=== PATIENT | female | born 1995 | race Two or more races ===

== ENCOUNTER 2023-03-10 15:45 | Emergency (ER) | payer MEDICAID, OTHER ==
[~2023-03-10] VITALS: Ht 170.2 cm; Wt 67.0 kg
[2023-03-10] MEDS ORDERED: ALBUTEROL SULF 2.5 MG/0.5ML(0.5%) NEB SOLN NEB ONE (17:30)
[2023-03-10] MEDS ORDERED: IPRATROPIUM BROM 0.5 MG/2.5ML INH SOL NEB ONE (17:30)
[2023-03-10 20:30] VITALS: BP 131/85; PULSE 72; RESP 18; TEMP 98.3; O2SAT 95
[2023-03-10] MEDS ORDERED: PROM1SOL4 PO (21:54)
[2023-03-10] MEDS ORDERED: ALBU108A5 IN (21:54)
[2023-03-10] MEDS ORDERED: PRED20TA2 PO (21:54)
[2023-03-10] MEDS ORDERED: AZITTAB PO (21:56)
== END 2023-03-10 22:23 | disposition home or self-care (01) ==
LOC: ER 15:45
DX: J40 Bronchitis, not specified as acute or chronic (principal)
CPT/HCPCS: 71045; 94640; 99283; J7644

== ENCOUNTER 2023-08-07 16:07 | Emergency (ER) | payer MEDICAID ==
[~2023-08-07] VITALS: Ht 167.6 cm; Wt 69.1 kg
[~2023-08-07 16:07] MED LIST: ALBU108A5 IN; AZITTAB PO; PRED20TA2 PO; PROM1SOL4 PO
[2023-08-07 17:53] LABS: Urine Bacteria None Seen /hpf (None Seen); Urine WBC None Seen /hpf (0 - 5)
[2023-08-07 18:02] LABS: Urine Blood Negative /uL (Negative); Urine Clarity Clear (Clear); Urine Color Colorless (Yellow); Urine Protein, UAD Negative (Negative); Urine Specific Gravity 1.006 (1.001-1.035); Urine Urobilinogen Normal (Negative)
[2023-08-07 18:18] LABS: Basophils # (auto) 0.1 10 ^3/uL (0-0.2); Basophils % (auto) 0.8 % (0.0-2.0); Eosinophils # (auto) 0.4 10 ^3/uL (0-0.8); Eosinophils % (auto) 4.7 % (0.0-7.0); Hematocrit 42.9 % (36.0-46.0); Hemoglobin 14.1 g/dL (12.2-16.2); Lymphocytes # (auto) 2.2 10 ^3/uL (0.4-5.4); Mean Corpuscular Hemoglobin 29.5 pg (28.0-32.0); Mean Corpuscular Volume 89.6 fL (80.0-100.0); Monocytes # (auto) 0.6 10 ^3/uL (0-1.3); Neutrophils # (auto) 4.6 10 ^3/uL (1.6-8.6); Neutrophils % (auto) 58.5 % (37.0-80.0); Nucleated Red Blood Cells % 0.1 %; Red Blood Cells 4.79 10^6/uL (4.0-5.20); Red Cell Distribution Width 13.5 % (11.8-14.3); White Blood Cell 7.8 10^3/uL (4.4-10.8)
[2023-08-07 18:20] LABS: Chloride 109 mmol/L (98-107); Sodium 139 mmol/L (136-145)
[2023-08-07 18:21] LABS: Anion Gap 4 (5-15); Calcium 9.6 mg/dL (8.7-10.4); Carbon Dioxide 26 mmol/L (20-30)
[2023-08-07 18:26] LABS: BUN/Creatinine Ratio 9.6 (10.0-20.0); Blood Urea Nitrogen 7 mg/dL (9-23); Glucose 88 mg/dL (74-106)
[2023-08-07 19:47] VITALS: BP 112/66; PULSE 65; RESP 18; TEMP 98.7; O2SAT 100
== END 2023-08-07 20:54 | disposition home or self-care (01) ==
LOC: ER 16:07
DX: K59.00 Constipation, unspecified (principal); R10.2 Pelvic and perineal pain; Z32.02 Encounter for pregnancy test, result negative
CPT/HCPCS: 36415; 74176; 76830; 76856; 80048; 81001; 81025; 84702; 85025

== ENCOUNTER 2024-01-29 04:06 | Emergency (ER) | payer MEDICAID ==
[~2024-01-29] VITALS: Ht 170.2 cm; Wt 68.0 kg
[2024-01-29] MEDS: ALBUTEROL SULF 2.5 MG/0.5ML(0.5%) NEB SOLN ONE (04:21)
[2024-01-29] MEDS: IPRATROPIUM BROM 0.5 MG/2.5ML INH SOL ONE (04:21)
[2024-01-29] MEDS: IPRATROPIUM BROM 0.5 MG/2.5ML INH SOL NEB ONE (04:26)
[2024-01-29] MEDS: ALBUTEROL SULF 2.5 MG/0.5ML(0.5%) NEB SOLN NEB ONE (04:27)
[2024-01-29] MEDS ORDERED: METH4PAK PO (04:58)
[2024-01-29] MEDS ORDERED: AUG875T PO (04:59)
--- NOTE | 2024-01-29 05:01 | ED.PDOC ---
SOB-HPI HPI Comments A 29 year old female presents to the ED with a chief complaint of asthma exacerbation. Patient states she has a past medical history of asthma and began experiencing a cough 2 days ago. Patient has been using her inhaler for the past 2 days but has not noticed an improvement. Upon triage patient's O2 sat was 89% on RA. No other symptoms or modifying factors present at this time. Chief Complaint: Asthma Time Seen by MD: 04:54 Primary Care Provider: NONE Reviewed notes: Medications, Allergies Information Source: Patient Mode of Arrival: Ambulatory Severity: Moderate Timing: Days Duration: Since onset History of: Asthma Prehospital treatment: None Associated Signs and Symptoms: Cough Past Medical History PAST MEDICAL HISTORY: Asthma Surgical History: Denies all surgeries PROGRAM DIR History: Other Family History Family History: Reviewed,noncontributory to illness, No family hx of Cancer, No family hx of DM, No family hx of Heart jennifer, No family hx of HTN, No family hx ofKidney jennifer, No family hx of Liver jennifer, No family hx of Lung jennifer, No family hx of Stroke Social History Smoker: Non-Smoker Alcohol: Denies ETOH Use Drugs: Denies Drug Use Constitutional: denies: chills, diaphoresis, fatigue, fever, malaise, sweats, weakness, others EENTM: denies: blurred vision, double vision, ear bleeding, ear discharge, ear drainage, ear pain, ear ringing, eye pain, eye redness, hearing loss, mouth pain, mouth swelling, nasal discharge, nose bleeding, nose congestion, nose pain, photophobia, tearing, throat pain, throat swelling, voice changes, others Respiratory: reports: cough, wheezing; denies: hemoptysis, orthopnea, SOB at rest, shortness of breath, SOB with excertion, stridor, others Cardiovascular: denies: chest pain, dizzy spells, diaphoresis, Dyspnea on exertion, edema, irregular heart beat, left arm pain, lightheadedness, palpitations, PND, syncope, others Gastrointestinal: denies: abdomen distended, abdominal pain, blood streaked bowels, constipated, diarrhea, dysphagia, difficulty swallowing, hematemesis, m lilly, nausea, poor appetite, poor fluid intake, rectal bleeding, rectal pain, vomiting, others Genitourinary: denies: abnormal vagina bleeding, burning, dyspareunia, dysuria, flank pain, frequency, hematuria, incontinence, pain, , vagina discharge, urgency, others Neurological: denies: dizziness, fainting, headache, left sided numbness, left sided weakness, numbness, paresthesia, pre-existing deficit, right sided numbness, right sided weakness, seizure, speech problems, tingling, tremors, weakness, others Musculoskeletal: denies: back pain, gout, joint pain, joint swelling, muscle pain, muscle stiffness, neck pain, others Integumetry: denies: bruises, change in color, change in hair/nails, dryness, laceration, lesions, lumps, rash, wounds, others Allergic/Immunocompromised: denies: Difficulty Healing, Frequent Infections, Hives, Itching, others Hematologic/Lymphatic: denies: anemia, blood clots, easy bleeding, easy bruising, swollen glands, others Endocrine: denies: excessive hunger, excessive sweating, excessive thirst, excessive urination, flushing, intolerance to cold, intolerance to heat, unexpla ined weight gain, unexplained weight loss, others Psychiatric: denies: anxiety, bipolar disorder, depression, hopeless, panic disorder, schizophrenia, sleepless, suicidal, others All Other Systems: Reviewed and Negative Physical Exam General Appearance: No Apparent Distress, Normal HEENT: Normal ENT Inspection, Pharynx Normal, TMs Normal Neck: Full Range of Motion, Non-Tender, Normal, Normal Inspection Respiratory: Chest Non-Tender, No Accessory Muscle Use, Wheezing Cardiovascular: No Edema, No JVD, No Murmur, No Gallop, Normal Peripheral Pulses, Regular Rate/Rhythm Breast Exam: Deferred Gastrointestinal: No Organomegaly, Non Tender, No Pulsatile Mass, Normal Bowel Sounds, Soft Genitalia: Deferred Pelvic: Deferred Rectal: Deferred Extremities: No calf tenderness, Normal capillary refill, Normal inspection, Normal range of motion, Non-tender, No pedal edema Musculoskeletal : Apperance: Normal Neurologic: Alert, protective signal installer helper II-XII nml as Tested, No Motor Deficits, Normal Affect, Normal Mood, No Sensory Deficits Cerebellar Function: Normal Reflexes: Normal Skin: Dry, Normal Color, Warm Lymphatic: No Adenopathy Was a procedure done? Was a procedure done?: No Differential Dx Differential Diagnosis: Anxiety, Asthma, Bronchitis, COPD, Pneumonia X-Ray, Labs, Meds, VS Vital Signs Date Time Temp Pulse Resp B/P (MAP) Pulse Ox O2 Delivery O2 Flow Rate FiO2 01/29/24 04:26 89 Nasal Cannula* 2 28 01/29/24 04:26 18 89 Nasal Cannula* 2 28 01/29/24 04:26 18 89 Nasal Cannula* 2 28 01/29/24 04:11 24 89 Room Air* 0 21 01/29/24 04:11 98.0 109 24 146/86 (106) 89 Current Medications Medications (Trade) Dose Ordered Sig/Brittnee Route Start Time Stop Time Status Last Admin Albuterol (Ventolin Medneb) 2.5 mg ONCE ONCE NEB 01/29/24 04:30 01/29/24 04:31 DC 01/29/24 04:27 Ipratropium [place] (Atrovent Medneb) 0.5 mg ONCE ONCE NEB 01/29/24 04:30 01/29/24 04:31 DC 01/29/24 04:26 Patient was given Solu-Medrol IM with DuoNeb treatment with improve her asthma. She is discharged with amoxicillin and Medrol Dosepak Time of 1ST Reevaluation: 05:24 Reevaluation 1ST: Unchanged Patient Education/Counseling: Diagnosis, Treatment, Other Family Education/Counseling: No Family Present Departure 1 Departure Time of Disposition: 05:15 Impression: Primary Impression: Acute asthma Disposition: 01 HOME / SELF CARE / HOMELESS Condition: Stable Additional Instructions: Reassessed patient, vital signs stable. Denies any new symptoms. Patient is able to tolerate PO and ambulate/be mobile at their baseline without concern. Risks and benefits of all medications given or prescribed, if any, discussed. All lab work, imaging and diagnostic studies were reviewed by me. The patient was counseled extensively on my clinical impression, diagnosis, expected course of the disease, and plan, including their follow-up care. Will discharge patient. Patient instructed to follow up with Primary Care Physician within 24-48 hours. Strict return precautions given for further exacerbation of symptoms or for new symptoms. The patient was given the opportunity to ask questions and all questions were answered by myself and the nursing/tech staff. Patient is in agreement with the care plan. The patient verbally expressed understanding of the discharge instructions, including the reasons to return to the Emergency Department. e-Prescriptions Amoxicillin & Pot Clavulanate (AUGMENTIN TABLET) 875 Mg Tb 875 MG PO BID, #14 TAB Prov: BENSON,BECKY D MD 01/29/24 Methylprednisolone (Medrol Dosepak) 4 Mg [place] 4 MG PO UD, #21 TAB UAD Prov: BECKY BENSON MD 01/29/24 Critical Care Note Critical Care Time?: No Stability Stability form required: No Heart Score Heart Score: Heart Score Response (Comments) Value History N/A 0 EKG N/A 0 Age N/A 0 Risk Factors N/A 0 Troponin N/A 0 Total 0 I personally scribed for BECKY BENSON MD ([email or web address]) on 01/29/24 at 05:01. Electronically submitted by Claire Small ([email or web address]). BECKY BENSON MD Jan 29, 2024 05:01
[2024-01-29] MEDS: methylPREDNISolone SOD SUCC 125 MG/2 ML VL IM ONE (05:53)
[2024-01-29 05:56] VITALS: BP 114/86; PULSE 86; RESP 20; O2SAT 95
[2024-01-29 06:25] VITALS: RESP 20; O2SAT 96
[2024-01-30] MEDS ORDERED: IBUP-1455 PO (16:40)
== END 2024-01-29 06:25 | disposition home or self-care (01) ==
LOC: ER 04:06
DX: J45.901 Unspecified asthma with (acute) exacerbation (principal)
CPT/HCPCS: 94640; 96372; 99283; J2919

== ENCOUNTER 2024-01-30 00:19 | Inpatient (IN) | payer MEDICAID ==
[2024-01-30] VITALS (32 sets, daily range): BP systolic 111–132; BP diastolic 62–90; PULSE 70–144; RESP 18–39; TEMP 97.4–99.2; O2SAT 90–100
[~2024-01-30] VITALS: Ht 170.2 cm; Wt 72.9 kg
[~2024-01-30 00:19] MED LIST changes: +AUG875T PO; +METH4PAK PO
[2024-01-30] MEDS: ALBUTEROL SULF 2.5 MG/0.5ML(0.5%) NEB SOLN NEB ONE ×2 (00:57→17:28)
[2024-01-30] MEDS: IPRATROPIUM BROM 0.5 MG/2.5ML INH SOL NEB ONE (00:57)
[2024-01-30 00:59] LABS: Basophils # (auto) 0.1 10 ^3/uL (0-0.2); Basophils % (auto) 0.2 % (0.0-2.0); Eosinophils # (auto) 0 10 ^3/uL (0-0.8); Hematocrit 45.8 % (36.0-46.0); Hemoglobin 15.3 g/dL (12.2-16.2); Lymphocytes # (auto) 1.6 10 ^3/uL (0.4-5.4); Lymphocytes % (auto) 6.2 % (10.0-50.0); Mean Corpuscular Hemoglobin 29.4 pg (28.0-32.0); Mean Corpuscular Hgb Conc. 33.5 g/dL (32.0-36.0); Mean Corpuscular Volume 87.7 fL (80.0-100.0); Monocytes # (auto) 1.3 10 ^3/uL (0-1.3); Monocytes % (auto) 5.3 % (0.0-12.0); Neutrophils # (auto) 22.4 10 ^3/uL (1.6-8.6); Neutrophils % (auto) 88.3 % (37.0-80.0); Platelet Count (auto) 327 10^3/uL (140-450); Red Blood Cells 5.22 10^6/uL (4.0-5.20); Red Cell Distribution Width 13.9 % (11.8-14.3); White Blood Cell 25.4 10^3/uL (4.4-10.8)
--- NOTE | 2024-01-30 01:10 | DVH ---
EXAM: XY CHEST PORTABLE CLINICAL HISTORY: Shortness of breath TECHNIQUE: Single AP view of the chest WID: COMPARISON: XY CHEST XRAY 1 VIEW on DOS: 03/10/23 FINDINGS: Lines and tubes: None Chest: The heart size and pulmonary vasculature is within normal limits. No pleural effusion, pneumothorax, or consolidation. The osseous structures are grossly intact. IMPRESSION: No acute cardiopulmonary abnormality.
[2024-01-30] MEDS: LORazepam 2MG/ML-1ML VIAL IV ONE (01:11)
[2024-01-30 01:15] LABS: Alanine Aminotransferase 16 U/L (7-40); Albumin 5.5 g/dL (3.2-4.8); Alkaline Phosphatase 81 U/L (46-116); Anion Gap 12 (5-15); Aspartate Aminotransferase 27 U/L (13-40); BUN/Creatinine Ratio 9.1 (10.0-20.0); Bilirubin, Total 0.7 mg/dL (0.2-1.0); Blood Urea Nitrogen 6 mg/dL (9-23); Calcium 9.9 mg/dL (8.7-10.4); Carbon Dioxide 18 mmol/L (20-31); Chloride 107 mmol/L (98-107); Glucose 121 mg/dL (74-106); Potassium 4.3 mmol/L (3.5-5.1); Sodium 137 mmol/L (136-145); Total Protein 8.5 g/dL (5.7-8.2)
[2024-01-30] MEDS: AZITHROMYCIN 500MG/ 250ML 250 ML IV ONE (01:38)
--- NOTE | 2024-01-30 02:26 | ED.PDOC ---
SOB-HPI HPI Comments Patient is a pleasant 29-year-old female who arrives to the ED today with complaints of significant shortness a breath for most of the day. Patient was seen with the facility earlier this morning and sent home with antibiotics after breathing treatments. Patient states that shortly after arriving back home, she continued to have significant shortness of breath concerns. Patient arrives satting in the 80s and presenting in mild respiratory distress. Patient was tachycardic and tachypneic. Patient was not febrile. Chief Complaint: Shortness of Breath Time Seen by MD: 00:24 Primary Care Provider: NONE Reviewed notes: Nurses Notes Information Source: Patient Mode of Arrival: Ambulatory Severity: Severe Timing: Hours Duration: Since onset Context: At Rest PE Risk Factors: None History of: Asthma, Anxiety Prehospital treatment: Treatment Modifying Factors: Nothing Associated Signs and Symptoms: Wheeze, Cough Radiation: No Radiation Past Medical History PAST MEDICAL HISTORY: Asthma Past Medical History (Other): Diagnosed earlier today with a bacterial pulmonary infection Surgical History: Denies all surgeries TAX TECHNICIAN History: Other Family History Family History: Reviewed,noncontributory to illness, No family hx of Cancer, No family hx of DM, No family hx of Heart jennifer, No family hx of HTN, No family hx ofKidney jennifer, No family hx of Liver jennifer, No family hx of Lung jennifer, No family hx of Stroke Social History Smoker: Non-Smoker Alcohol: Denies ETOH Use Drugs: Denies Drug Use Constitutional: denies: chills, diaphoresis, fatigue, fever, malaise, sweats, weakness, others EENTM: denies: blurred vision, double vision, ear bleeding, ear discharge, ear drainage, ear pain, ear ringing, eye pain, eye redness, hearing loss, mouth pain, mouth swelling, nasal discharge, nose bleeding, nose congestion, nose pain, photophobia, tearing, throat pain, throat swelling, voice changes, others Respiratory: reports: cough, SOB at rest, shortness of breath; denies: hemoptysis, orthopnea, SOB with excertion, stridor, wheezing, others Cardiovascular: denies: chest pain, dizzy spells, diaphoresis, Dyspnea on exertion, edema, irregular heart beat, left arm pain, lightheadedness, palpitations, PND, syncope, others Gastrointestinal: denies: abdomen distended, abdominal pain, blood streaked bowels, constipated, diarrhea, dysphagia, difficulty swallowing, hematemesis, melena, nausea, poor appetite, poor fluid intake, rectal bleeding, rectal pain, vomiting, others Genitourinary: denies: abnormal vagina bleeding, burning, dyspareunia, dysuria, flank pain, frequency, hematuria, incontinence, pain, , vagina discharge, urgency, others Neurological: denies: dizziness, fainting, headache, left sided numbness, left sided weakness, numbness, paresthesia, pre-existing deficit, right sided numbness, right sided weakness, seizure, speech problems, tingling, tremors, weakness, others Musculoskeletal: denies: back pain, gout, joint pain, joint swelling, muscle pain, muscle stiffness, neck pain, others Integumetry: denies: bruises, change in color, change in hair/nails, dryness, laceration, lesions, lumps, rash, wounds, others Allergic/Immunocompromised: denies: Difficulty Healing, Frequent Infections, H oren, Itching, others Hematologic/Lymphatic: denies: anemia, blood clots, easy bleeding, easy bruising, swollen glands, others Endocrine: denies: excessive hunger, excessive sweating, excessive thirst, excessive urination, flushing, intolerance to cold, intolerance to heat, unexplained weight gain, unexplained weight loss, others Psychiatric: denies: anxiety, bipolar disorder, depression, hopeless, panic disorder, schizophrenia, sleepless, suicidal, others Physical Exam Exam Comments Patient was tearful and mildly panicked at time of evaluation due to anxiety. General Appearance: Moderate Distress (Patient was in moderate to significant distress due to shortness of breath concerns at arrival.), Normal HEENT: Normal ENT Inspection, Pharynx Normal, TMs Normal Neck: Full Range of Motion, Non-Tender, Normal, Normal Inspection Respiratory: Other (Auscultation bilateral lung thompson revealed patchy rhonchi throughout.) Cardiovascular: No Edema, No JVD, No Murmur, No Gallop, Normal Peripheral Pulses, Regular Rate/Rhythm Breast Exam: Deferred Gastrointestinal: No Organomegaly, Non Tender, No Pulsatile Mass, Normal Bowel Sounds, Soft Genitalia: Deferred Pelvic: Deferred Rectal: Deferred Extremities: No calf tenderness, Normal capillary refill, Normal inspection, Normal range of motion, Non-tender, No pedal edema Neurologic: Alert, carding doubler II-XII nml as Tested, No Motor Deficits, Normal Affect, Normal Mood, No Sensory Deficits Cerebellar Function: Normal Reflexes: Normal Skin: Dry, Normal Color, Warm Lymphatic: No Adenopathy Was a procedure done? Was a procedure done?: No Differential Dx Differential Diagnosis: Anxiety, Asthma, Bronchitis, CHF, Pneumonia, Pulmonary Embolism, Respiratory Distress, URI X-Ray, Labs, Meds, VS Vital Signs Date Time Temp Pulse Resp B/P (MAP) Pulse Ox O2 Delivery O2 Flow Rate FiO2 01/30/24 02:00 120 32 43/23 (30) 01/30/24 00:39 27 96 Non-Rebreather 15 N/A 01/30/24 00:38 117 01/30/24 00:37 115 36 128/90 (103) 98 01/30/24 00:35 127 92 Non-Rebreather 15 N/A 01/30/24 00:28 98.5 121 22 136/74 (94) 93 01/30/24 00:28 22 93 Non-Rebreather 15 N/A Lab Test 01/30/24 00:45 Range/Units White Blood Count 25.4 H 4.4-10.8 10^3/uL Red Blood Count 5.22 H 4.0-5.20 10^6/uL Hemoglobin 15.3 12.2-16.2 g/dL Hematocrit 45.8 36.0-46.0 % Mean Corpuscular Volume 87.7 80.0-100.0 fL Mean Corpuscular Hemoglobin 29.4 28.0-32.0 pg Mean Corpuscular Hemoglobin Concent 33.5 32.0-36.0 g/dL Red Cell Distribution Width 13.9 11.8-14.3 % Platelet Count 327 140-450 10^3/uL Mean Platelet Volume 9.0 6.9-10.8 fL Neutrophils (%) (Auto) 88.3 H 37.0-80.0 % Lymphocytes (%) (Auto) 6.2 L 10.0-50.0 % Monocytes (%) (Auto) 5.3 0.0-12.0 % Eosinophils (%) (Auto) 0.0 0.0-7.0 % Basophils (%) (Auto) 0.2 0.0-2.0 % Neutrophils # (Auto) 22.4 H 1.6-8.6 10 ^3/uL Lymphocytes # (Auto) 1.6 0.4-5.4 10 ^3/uL Monocytes # (Auto) 1.3 0-1.3 10 ^3/uL Eosinophils # (Auto) 0 0-0.8 10 ^3/uL Basophils # (Auto) 0.1 0-0.2 10 ^3/uL Nucleated Red Blood Cells 0.0 % D-Dimer, Quantitative 1.11 H 0.0-0.49 mg/L FEU Sodium Level 137 136-145 mmol/L Potassium Level 4.3 3.5-5.1 mmol/L Chloride Level 107 98-107 mmol/L Carbon Dioxide Level 18 L 20-31 mmol/L Anion Gap 12 5-15 Blood Urea Nitrogen 6 L 9-23 mg/dL Creatinine 0.66 0.550-1.02 mg/dL Glomerular Filtration Rate Calc 122 >90 mL/min BUN/Creatinine Ratio 9.1 L 10.0-20.0 Serum Glucose 121 H 74-106 mg/dL Calcium Level 9.9 8.7-10.4 mg/dL Total Bilirubin 0.7 0.2-1.0 mg/dL Aspartate Amino Transferase (AST) 27 13-40 U/L Alanine Aminotransferase (ALT) 16 7-40 U/L Alkaline Phosphatase 81 46-116 U/L Troponin I High Sensitivity 11 </=34 ng/L Total Protein 8.5 H 5.7-8.2 g/dL Albumin 5.5 H 3.2-4.8 g/dL Beta HCG, Quantitative 0.4 L 1.5-4.2 mIU/mL Current Medications Medications (Trade) Dose Ordered Sig/Brittnee Route Start Time Stop Time Status Last Admin Ipratropium [place] (Atrovent Medneb) 0.5 mg ONCE ONCE NEB 01/30/24 00:30 01/30/24 00:31 DC 01/30/24 00:57 Albuterol (Ventolin Medneb) 5 mg ONCE ONCE NEB 01/30/24 00:30 01/30/24 00:31 DC 01/30/24 00:57 Lorazepam (Ativan Inj) 1 mg ONCE ONCE IV 01/30/24 01:00 01/30/24 01:03 DC 01/30/24 01:11 Azithromycin 250 ml @ 125 mls/hr ONCE ONCE IV 01/30/24 01:30 01/30/24 03:29 01/30/24 01:38 X-Ray, Labs, Meds, VS Comment All studies performed in the ED were reviewed by me personally. EKG revealed a sinus tachycardia with a rate of 113. Borderline right axis deviation with RSR in V1 or V2. [place] interval of 163 and QT interval of 346. Laboratories were remarkable for a leukocytosis that may be related to her recent steroid use. Additionally, patient had an elevated D-dimer. CT studies were pending at time of this note. Patient will be admitted for acute respiratory distress as she is currently on a non-rebreather at 15 L and satting at 97%. One dose of Lovenox will be dispensed in case the patient displays a PE on CT studies. Patient will require a cardiac and possible pulmonary consultation. Time of 1ST Reevaluation: : Reevaluation 1ST: Improved Consultation: PCP Patient Education/Counseling: Diagnosis, Treatment Family Education/Counseling: Diagnosis, Treatment Departure 1 Departure Time of Disposition: :26 Impression: Primary Impression: Acute respiratory distress Additional Impression: Elevated d-dimer Disposition: ADMITTED INPATIENT Condition: Fair Discharged With: Self Critical Care Note Critical Care Time?: Yes (45 min-critical care time only) Critical care comment: Due to a high probability of a clinically significant and possibly life- threatening deterioration, this patient required my highest level of preparedness to intervene emergently and therefore, I personally provided 45 minutes of critical care time exclusive of time spent on separate billable procedures. This critical care time includes, but is not limited to, obtaining additional history, re-examination of the patient, evaluation of pulse oximetry as well as ordering and reviewing of new studies, arranging urgent treatment with the development of a management plan as well as evaluation of patient's response to treatments with frequent reassessments and discussions with other providers. Stability Stability form required: No Heart Score Heart Score: Heart Score Response (Comments) Value History Slightly Suspicious 0 EKG Repolarization Disturb 1 Age <45 0 Risk Factors No known risk factors 0 Troponin Normal limit 0 Total 1 LUÍS GROSSMAN PAC Jan 30, 2024 02:26
[2024-01-30] MEDS: IOHEXOL 350 MG/ML 100ML IJ ONE (02:30)
[2024-01-30] MEDS ORDERED: DOCUSATE SOD 100 MG CAP PO PRN (03:00)
[2024-01-30] MEDS ORDERED: NITROGLYCERIN 0.4 MG SL TAB SL PRN (03:00)
[2024-01-30] MEDS ORDERED: ONDANSETRON HCL 4 MG/2 ML VIAL IV PRN (03:00)
[2024-01-30] MEDS ORDERED: MORPHINE SULFATE INJ 2 MG/ml SYRG IV PRN (03:00)
[2024-01-30] MEDS ORDERED: ACETAMINOPHEN 325 MG TAB PO PRN (03:00)
[2024-01-30] MEDS: ENOXAPARIN SOD 40 MG/0.4 ML SYRINGE SC ONE (03:09)
[2024-01-30] MEDS: SUMAtriptan SUCCINATE 6 MG/0.5 ML VL SC STA (03:10)
--- NOTE | 2024-01-30 03:20 | DVHHP2 ---
History of Present Illness Reason for Visit: ACUTE RESPIRATORY DISTRESS History of Present Illness THE PATIENT IS A 29-YEAR-OLD FEMALE WITH PAST MEDICAL HISTORY OF ASTHMA WHO PRESENTED TO [facility] ED WITH COMPLAINT OF SHORTNESS OF BREATHS. PATIENT WAS SEEN WITH THE FACILITY EARLIER THIS MORNING AND SENT HOME WITH ANTIBIOTICS AFTER BREATHING TREATMENTS. PATIENT STATES THAT SHORTLY AFTER ARRIVING BACK HOME, SHE CONTINUED TO HAVE SIGNIFICANT SHORTNESS OF BREATHS CONCERNS. PATIENT WAS SEEN AND EVALUATED IN THE ED SATURATING IN THE 80S, TACHYCARDIA, TACHYPNEIC, AND PRESENTING IN MILD RESPIRATORY DISTRESS. LABORATORY DATA SHOWS WBC 25.4, PLATELETS 327, SODIUM 137, POTASSIUM 4.3, BUN 6, CREATININE 0.66, GLUCOSE 121, PROTEIN 8.5, ALBUMIN 5.5, TROPONIN 11, D-DIMER 1.11. CHEST X- RAY SHOW NO ACUTE CARDIOPULMONARY ABNORMALITY; CT ANGIOGRAPHY RESULT PENDING. PATIENT WAS GIVEN BREATHING TREATMENT, STARTED ON IV ANTIBIOTIC REGIMEN AZITHROMYCIN, PLEASE SEE MEDICATION ORDERS SECTION IN THE COMPUTER. ON MY ASSESSMENT, PATIENT DENIED CHEST PAIN, NO HEADACHE, NO DIZZINESS, NO DIAPHORESIS, CURRENTLY ON OXYGEN, NO NAUSEA, NO VOMITING, NO FEVER, NO CHILLS. PATIENT WAS ADMITTED FOR FURTHER EVALUATION AND MEDICAL MANAGEMENT. Past Medical History Asthma Past Surgical History Denies all surgeries Family History REVIEWED, NONCONTRIBUTORY TO THE MANAGEMENT OF THIS CASE. Past Social History THE PATIENT LIVES AT HOME, DENIES SMOKING, ALCOHOL OR ILLICIT DRUGS ABUSE. Review of Systems Constitutional: No: Fever, Chills, Sweats, Weakness, Malaise, Other Eyes: No: Pain, Vision change, Conjunctivae inflammation, Eyelid inflammation, Other, Redness ENT: No: Ear pain, Ear discharge, Nose pain, Nose discharge, Nose congestion, Mouth pain, Mouth swelling, Throat pain, Throat swelling, Other Respiratory: Cough, Shortness of breath, SOB with excertion, Wheezing, Other (SOB AT REST); No: Dry, Wheezing, Hemoptysis, Pleuritic Pain, Sputum Cardiovascular: No: Chest Pain, Palpitations, Orthopnea, Paroxysmal Noc. Dyspnea, Edema, Lt Headedness, Other Gastrointestinal: No: Nausea, Vomiting, Abdominal Pain, Diarrhea, Constipation, Melena, Hematochezia, Other Genitourinary: No Dysuria, No Frequency, No Incontinence, No Hematuria, No Retention, No Other Musculoskeletal: No: other, neck pain, shoulder pain, arm pain, back pain, hand pain, leg pain, foot pain Skin: No: Rash, Lesions, Jaundice, Bruising, Other Neurological: No: Weakness, Numbness, Incoordination, Change in speech, Confusion, Seizures, Other Allergies: Coded Allergies: NO KNOWN ALLERGIES (Unverified , 03/10/23) Medications Current Medications Medications Dose Ordered Sig/Brittnee Route Start Time Stop Time Status Last Admin Dose Admin Ceftriaxone Sodium 50 ml @ 100 mls/hr DAILY@09 IV 01/30/24 09:00 UNV Azithromycin 250 ml @ 125 mls/hr DAILY IV 01/30/24 10:00 UNV Methylprednisolone Sodium Succinate 40 mg Q8HR IV 01/30/24 06:00 UNV Sodium Chloride 1,000 ml @ 60 mls/hr [id number] IV 01/30/24 03:00 UNV Acetaminophen/ Hydrocodone Bitart 1 tab Q4HP PRN PO 01/30/24 03:00 UNV Ondansetron HCl 4 mg Q4HP PRN IV 01/30/24 03:00 UNV Docusate Sodium 100 mg BIDPRN PRN PO 01/30/24 03:00 UNV Enoxaparin Sodium 40 mg DAILY SC 01/30/24 10:00 UNV Acetaminophen 650 mg Q6HP PRN PO 01/30/24 03:00 UNV Nitroglycerin 0.4 mg Q5MINP PRN SL 01/30/24 03:00 UNV Morphine Sulfate 2 mg Q30M PRN IV 01/30/24 03:00 UNV Famotidine 20 mg Q12HR IV 01/30/24 10:00 UNV Exam Vital Signs Vital Signs Date Time Temp Pulse Resp B/P (MAP) Pulse Ox O2 Delivery O2 Flow Rate FiO2 01/30/24 02:32 113 01/30/24 02:00 32 43/23 (30) 01/30/24 00:39 96 Non-Rebreather 15 N/A 01/30/24 00:28 98.5 General Appearance: Alert, Oriented X3, Cooperative, No acute distress HEENT: Atraumatic, PERRLA, EOMI, Mucous membr. moist/pink Respiratory: Normal air movement, Other (WHEEZING) Cardiovascular: Regular rate, Normal S1, Normal S2, No murmurs Abdominal: Normal bowel sounds, Soft, No tenderness, No hepatospenomegaly, No masses Extremities: No clubbing, No cyanosis, No edema, Normal pulses, No tenderness/swelling Skin: No rashes, No breakdown, No significant lesion Neuro: Normal gait, Normal speech, Strength at 5/5 X4 ext, Normal tone, Sensation intact, Cranial nerves 3-12 NL, Reflexes 2+ Psych/Mental Status: Mental status NL, Mood NL Labs/Xrays Labs Test 01/30/24 00:45 Range/Units White Blood Count 25.4 H 4.4-10.8 10^3/uL Red Blood Count 5.22 H 4.0-5.20 10^6/uL Hemoglobin 15.3 12.2-16.2 g/dL Hematocrit 45.8 36.0-46.0 % Mean Corpuscular Volume 87.7 80.0-100.0 fL Mean Corpuscular Hemoglobin 29.4 28.0-32.0 pg Mean Corpuscular Hemoglobin Concent 33.5 32.0-36.0 g/dL Red Cell Distribution Width 13.9 11.8-14.3 % Platelet Count 327 140-450 10^3/uL Mean Platelet Volume 9.0 6.9-10.8 fL Neutrophils (%) (Auto) 88.3 H 37.0-80.0 % Lymphocytes (%) (Auto) 6.2 L 10.0-50.0 % Monocytes (%) (Auto) 5.3 0.0-12.0 % Eosinophils (%) (Auto) 0.0 0.0-7.0 % Basophils (%) (Auto) 0.2 0.0-2.0 % Neutrophils # (Auto) 22.4 H 1.6-8.6 10 ^3/uL Lymphocytes # (Auto) 1.6 0.4-5.4 10 ^3/uL Monocytes # (Auto) 1.3 0-1.3 10 ^3/uL Eosinophils # (Auto) 0 0-0.8 10 ^3/uL Basophils # (Auto) 0.1 0-0.2 10 ^3/uL Nucleated Red Blood Cells 0.0 % D-Dimer, Quantitative 1.11 H 0.0-0.49 mg/L FEU Sodium Level 137 136-145 mmol/L Potassium Level 4.3 3.5-5.1 mmol/L Chloride Level 107 98-107 mmol/L Carbon Dioxide Level 18 L 20-31 mmol/L Anion Gap 12 5-15 Blood Urea Nitrogen 6 L 9-23 mg/dL Creatinine 0.66 0.550-1.02 mg/dL Glomerular Filtration Rate Calc 122 >90 mL/min BUN/Creatinine Ratio 9.1 L 10.0-20.0 Serum Glucose 121 H 74-106 mg/dL Calcium Level 9.9 8.7-10.4 mg/dL Total Bilirubin 0.7 0.2-1.0 mg/dL Aspartate Amino Transferase (AST) 27 13-40 U/L Alanine Aminotransferase (ALT) 16 7-40 U/L Alkaline Phosphatase 81 46-116 U/L Troponin I High Sensitivity 11 </=34 ng/L Total Protein 8.5 H 5.7-8.2 g/dL Albumin 5.5 H 3.2-4.8 g/dL Beta HCG, Quantitative 0.4 L 1.5-4.2 mIU/mL PATIENT: SARAHI GARRETT ACCT: [id number] UNIT: [id number] : 1995 LOC: ER ROOM / BED: / AGE / SEX: 29 / F ADM STATUS: REG ER SERVICE 0030 ORDERING PHYSICIAN: LUÍS GROSSMAN PAC PROCEDURE(s): CXRP - CHEST PORTABLE REASON: Shortness of breath ORDER NUMBER(s): [id number], ACCESSION NUMBER(s): [id number] EXAM: XY CHEST PORTABLE CLINICAL HISTORY: Shortness of breath TECHNIQUE: Single AP view of the chest WID: COMPARISON: XY CHEST XRAY 1 VIEW on DOS: 03/10/23 FINDINGS: Lines and tubes: None Chest: The heart size and pulmonary vasculature is within normal limits. No pleural effusion, pneumothorax, or consolidation. The osseous structures are grossly intact. IMPRESSION: No acute cardiopulmonary abnormality. Assessment/Plan Assessment/Plan ACUTE RESPIRATORY DISTRESS GENERALIZED WEAKNESS ELEVATED D-DIMER LEUKOCYTOSIS, UNSPECIFIED PLAN 1. ADMIT TO TELEMETRY UNIT 2. BREATHING TREATMENT 3. PAIN CONTROL MANAGEMENT 4. IV ANTIBIOTIC MANAGEMENT 5. MANAGEMENT OF FLUIDS AND ELECTROLYTES 6. CONSULTATION FOR PULMONOLOGY 7. DIAGNOSTIC TEST CT ANGIOGRAPHY 8. DVT PROPHYLAXIS-ON LOVENOX 9. REPEAT LABS CBC, CMP IN A.M. 10. HOME MEDICATION REVIEWED AND RECONCILED 11. CONTINUE WITH CURRENT MEDICAL MANAGEMENT 12. TREATMENT PLAN DISCUSSED WITH PATIENT AND RN. PATIENT VERBALIZED UNDERSTANDING. Plan discussed with: Patient, Other (RN) My Orders Orders - JORDYN CRISOSTOMO DNP Procedure Category Date Status Time Complete Blood Count LAB 01/30/24 Logged 04:00 Comprehensive LAB 01/30/24 Logged Metabolic Panel 04:00 Ceftriaxone 1gm/50ml PHA 01/30/24 Logged D5w (Rocephin) 09:00 Azithromycin 500mg/ PHA 01/30/24 Logged 250ml (Zithromax 50 10:00 Methylprednisolone PHA 01/30/24 Logged Sod Succ (Solu Medrol 06:00 Methylprednisolone PHA 01/30/24 Logged Sod Succ (Solu Medrol 03:00 Admit ADMIT 01/30/24 Transmitted 02:51 Allergies [facility] 01/30/24 In Process 02:51 Code Status CODE 01/30/24 Transmitted 02:51 Sodium Chloride 0.9% PHA 01/30/24 Logged 03:00 Oxygen Per Hour RT 01/30/24 Transmitted 02:51 Hydrocodone-Acet PHA 01/30/24 Logged 5/325mg Tab ([place] 03:00 Ondansetron Hcl PHA 01/30/24 Logged (Zofran) 03:00 Docusate Sodium PHA 01/30/24 Logged Capsule ([place] 03:00 Enoxaparin Sodium PHA 01/30/24 Logged (Lovenox) 10:00 Complete Blood Count LAB 01/31/24 Verified 04:00 Comprehensive LAB 01/31/24 Verified Metabolic Panel 04:00 Cardiac DIET 01/30/24 Transmitted Diet-2gna,Lofat,Lochol Breakfast Condition: Serious [facility] 01/30/24 In Process 02:51 Acetaminophen Tablet [facility] 01/30/24 Logged (Tylenol Tablet) 03:00 Bedrest With Bathroom [facility] 01/30/24 In Process Privileg 02:51 Sequential [facility] 01/30/24 In Process Compression Device Nitroglycerin [facility] 01/30/24 Logged Sublingual (Ntrostat 03:00 Morphine Sulfate PHA 01/30/24 Logged Injection 03:00 Notify Of Changes [facility] 01/30/24 In Process From Base 02:51 Production Line For [facility] 01/30/24 In Process 24 Hours 02:51 Emergency Dysrhythmia [facility] 01/30/24 In Process Protocol 02:51 Rhythm Strips Once [facility] 01/30/24 In Process Every Shift 02:51 Oxygen By Nasal RT 01/30/24 Transmitted Cannula 02:51 Famotidine Injection PHA 01/30/24 Logged (Pepcid Injection) 10:00 *Consult CONS 01/30/24 Transmitted / 03:03 Problem List: (1) Acute respiratory distress (2) Generalized weakness (3) Elevated d-dimer (4) Leukocytosis, unspecified Date of Service: Jan 30, 2024 Billing Provider: JORDYN CRISOSTOMO DNP Common Visit Codes: [id number] INP/OBS CARE (HIGH) JORDYN CRISOSTOMO DNP Jan 30, 2024 03:20
[2024-01-30] MEDS: methylPREDNISolone SOD SUCC 125 MG/2 ML VL IV ONE ×2 (03:23→10:16)
[2024-01-30] MEDS: SODIUM CHLORIDE 0.9% 1,000 ML IV SCH (03:25)
--- NOTE | 2024-01-30 03:41 | DVH ---
Examination: CTACH CLINICAL INDICATION: Elevated D-dimer COMPARISON: None. CONTRAST USED: Intravenous. TECHNIQUE: Following standard protocol, axial images were obtained from the thoracic inlet to the up per abdomen after administration of intravenous contrast material, with timing optimized for visualiz ation of the pulmonary arterial tree. Additional reformatted sequences were reviewed. The scan was c onducted in accordance with ALARA principles. Multiplanar reconstructions were obtained. LIMITATIONS: Distal pulmonary arterial structures including subsegmental branches and beyond are not well visualized. FINDINGS: The main pulmonary trunk, right and left main pulmonary arteries are normal in course and caliber, wi th normal contrast opacification. The visualized descending and interlobar pulmonary arteries show normal contrast opacification. There is no obvious intraluminal filling defect seen. Mediastinum, heart and great vessels: The trachea and the mainstem bronchi are normal. No significa nt mediastinal lymphadenopathy is detected. Cardiac size is within normal limits. No evidence of aneurysmal dilatation of the ascending aorta. Tiny calcific plaque noted in the descending thoracic aorta. Otherwise, the rest of the mediastinal vasculature is unremarkable. No evidence of pericardial effusion. Lungs and pleura: Well-defined, geographic peribronchovascular areas of ground-glass attenuation in both upper pulmonary lobes anteriorly and in both lower pulmonary lobes, possible infective etiology. Advised clinicopathological correlation. Atelectatic bands and/or scarring in the medial segment of right middle pulmonary lobe and in the inf erior lingular segment. The rest of the pulmonary parenchyma does not show any significant abnormality. No pulmonary nodules are detected. Pleural spaces are clear, with no evidence of pleural effusion. Osseous structures: Ribs and thoracic vertebrae are unremarkable. Intervertebral disc calcifications noted in the mid thoracic spine. IMPRESSION: 1. No evidence of pulmonary thromboembolism. 2. Well-defined, geographic peribronchovascular areas of ground-glass attenuation in both upper pulm onary lobes anteriorly and in both lower pulmonary lobes, possible infective etiology. Advised clini copathological correlation. 3. No evidence of pulmonary nodule. 4. Chronic and/or ancillary findings as described above. Electronically Signed 01/30/2024 03:32 Richard Velázquez
[2024-01-30] MEDS: LEVALBUTEROL HCL 1.25 MG/3 ML NEB ONE (03:51)
[2024-01-30] MEDS: IPRATROPIUM BROM 0.5 MG/2.5ML INH SOL ONE (03:51)
[2024-01-30] MEDS: LEVALBUTEROL HCL 1.25 MG/3 ML NEB NEB PRN (04:26)
[2024-01-30] MEDS: IPRATROPIUM BROM 0.5 MG/2.5ML INH SOL NEB PRN (04:27)
[2024-01-30 04:39] LABS: Urine Bacteria None Seen /hpf (None Seen); Urine WBC None Seen /hpf (0 - 5)
[2024-01-30 04:52] LABS: Urine Blood Negative /uL (Negative); Urine Clarity Clear (Clear); Urine Color Light-Yellow (Yellow); Urine Protein, UAD Negative (Negative); Urine Specific Gravity 1.032 (1.001-1.035); Urine Urobilinogen Normal (Negative); Urine pH 6.5 (5.0-9.0)
[2024-01-30 06:33] LABS: COVID19 ANTIGEN SOFIA FIA NEGATIVE (NEGATIVE)
[2024-01-30 07:06] LABS: Hematocrit 42.7 % (36.0-46.0); Hemoglobin 14.2 g/dL (12.2-16.2); Mean Corpuscular Hemoglobin 29.1 pg (28.0-32.0); Mean Corpuscular Hgb Conc. 33.2 g/dL (32.0-36.0); Mean Corpuscular Volume 87.5 fL (80.0-100.0); Platelet Count (auto) 259 10^3/uL (140-450); Red Blood Cells 4.88 10^6/uL (4.0-5.20); Red Cell Distribution Width 14.2 % (11.8-14.3); White Blood Cell 19.6 10^3/uL (4.4-10.8)
[2024-01-30 07:15] LABS: Basophils % (manual) 0 (0.0-2.0); Blast Cells 0; Eosinophils % (manual) 0 (0-7); Metamyelocytes % 0; Myelocytes % 0; Promyelocytes % 0; Reactive Lymphocytes 0
[2024-01-30 07:26] LABS: Alanine Aminotransferase 15 U/L (7-40); Albumin 4.7 g/dL (3.2-4.8); Alkaline Phosphatase 66 U/L (46-116); Anion Gap 12 (5-15); Aspartate Aminotransferase 15 U/L (13-40); BUN/Creatinine Ratio 10.4 (10.0-20.0); Bilirubin, Total 0.7 mg/dL (0.2-1.0); Blood Urea Nitrogen 7 mg/dL (9-23); Calcium 9.6 mg/dL (8.7-10.4); Carbon Dioxide 20 mmol/L (20-31); Chloride 108 mmol/L (98-107); Glucose 156 mg/dL (74-106); Sodium 140 mmol/L (136-145); Total Protein 7.5 g/dL (5.7-8.2)
[2024-01-30 07:32] LABS: Band Neutrophils % (manual) 5; Lymphocytes % (manual) 5 (10.0-50.0); Monocytes % (manual) 3 (0-12)
[2024-01-30 07:33] LABS: Platelet Estimate Adequate; RBC Morphology Normal
[2024-01-30] MEDS: cefTRIAXone 1GM/50ML D5W 50 ML IV SCH (09:05)
[2024-01-30] MEDS ORDERED: BUDESONIDE (INHALATION) 0.5 MG/2 ML NEB NEB SCH (10:00)
--- NOTE | 2024-01-30 10:03 | DVHPN2 ---
Subjective Patient continues to report having shortness of breath, wheezing. Patient also reports having right knee pain Reviewed: Care Plan, H&P, Labs, Medications, Previous Orders Changes from previous H/P or p: No Changes General: Per HPI Eyes: No Pain, No Vision change, No Conjunctivae inflammation, No Eyelid inflammation, No Other, No Redness ENT: No Ear pain, No Ear discharge, No Nose pain, No Nose discharge, No Nose congestion, No Mouth pain, No Mouth swelling, No Throat pain, No Throat swelling, No Other Cardiovascular: No Chest Pain, No Palpitations, No Orthopnea, No Paroxysmal Noc. Dyspnea, No Edema, No Lt Headedness, No Other Respiratory: Cough; No Dry; Shortness of breath, SOB with excertion; No Wheezing, No Hemoptysis, No Pleuritic Pain, No Sputum; Other (SOB AT REST) Gastrointestinal: No Nausea, No Vomiting, No Abdominal Pain, No Diarrhea, No Constipation, No Melena, No Hematochezia, No Other Genitourinary: No Dysuria, No Frequency, No Incontinence, No Hematuria, No Retention, No Other Musculoskeletal: No other, No neck pain, No shoulder pain, No arm pain, No back pain, No hand pain, No leg pain, No foot pain Skin: No Rash, No Lesions, No Jaundice, No Bruising, No Other Objective Vitals Vital Signs Date Time Temp Pulse Resp B/P (MAP) Pulse Ox O2 Delivery O2 Flow Rate FiO2 01/30/24 09:40 116 28 123/61 (81) 95 01/30/24 08:01 98.1 98.1 01/30/24 07:34 Non-Rebreather 15 N/A General Appearance: Alert, Oriented X3, Cooperative, moderate distress HEENT: Atraumatic, PERRLA Lungs: Other (Inspiratory and expiratory wheezing. Patient on non-rebreather at 15 liters/minute) Cardiovascular: Normal S1, Normal S2, Other (Sinus tachycardia) Abdomen: Normal bowel sounds, Soft, No tenderness Musculoskeletal: Normal sensory function, Normal motor function Neuro: Normal speech Psych/Mental Status: Mental status NL, Mood NL Medications Current Medications Medications Dose Ordered Sig/Brittnee Route Start Time Stop Time Status Last Admin Dose Admin Ceftriaxone Sodium 50 ml @ 100 mls/hr DAILY@09 IV 01/30/24 09:00 01/30/24 09:05 100 MLS/HR Azithromycin 250 ml @ 125 mls/hr DAILY@0200 IV 01/31/24 02:00 Methylprednisolone Sodium Succinate 40 mg Q8HR IV 01/30/24 14:00 Sodium Chloride 1,000 ml @ 60 mls/hr [id number] IV 01/30/24 03:00 01/30/24 03:25 60 MLS/HR Acetaminophen/ Hydrocodone Bitart 1 tab Q4HP PRN PO 01/30/24 03:00 Ondansetron HCl 4 mg Q4HP PRN IV 01/30/24 03:00 Docusate Sodium 100 mg BIDPRN PRN PO 01/30/24 03:00 Enoxaparin Sodium 40 mg DAILY SC 01/30/24 10:00 Acetaminophen 650 mg Q6HP PRN PO 01/30/24 03:00 Nitroglycerin 0.4 mg Q5MINP PRN SL 01/30/24 03:00 Morphine Sulfate 2 mg Q30M PRN IV 01/30/24 03:00 Famotidine 20 mg Q12HR IV 01/30/24 10:00 Levalbuterol HCl 1.25 mg Q4HPRN PRN NEB 01/30/24 03:45 01/30/24 07:33 1.25 MG Ipratropium [place] 0.5 mg Q4HPRN PRN NEB 01/30/24 03:45 01/30/24 07:33 0.5 MG Laboratory Results Laboratory Tests 01/30/24 06:35 Chemistry Test 01/30/24 00:45 01/30/24 06:35 Albumin 5.5 g/dL (3.2-4.8) H 4.7 g/dL (3.2-4.8) Calcium Level 9.9 mg/dL (8.7-10.4) 9.6 mg/dL (8.7-10.4) Total Protein 8.5 g/dL (5.7-8.2) H 7.5 g/dL (5.7-8.2) Coagulation Test 01/30/24 00:45 D-Dimer, Quantitative 1.11 mg/L FEU (0.0-0.49) H LFT Test 01/30/24 00:45 01/30/24 06:35 Alanine Aminotransferase (ALT) 16 U/L (7-40) 15 U/L (7-40) Alkaline Phosphatase 81 U/L (46-116) 66 U/L (46-116) Aspartate Amino Transferase (AST) 27 U/L (13-40) 15 U/L (13-40) Total Bilirubin 0.7 mg/dL (0.2-1.0) 0.7 mg/dL (0.2-1.0) Urinalysis Test 01/30/24 04:20 Urine Color Light-yellow (Yellow) Urine Clarity Clear (Clear) Urine pH 6.5 (5.0-9.0) Urine Specific [place] 1.032 (1.001-1.035) Urine Protein Negative (Negative) Urine Ketones 1+ (Negative) H Urine Blood Negative /uL (Negative) Urine Nitrite Negative (Negative) Urine Bilirubin Negative (Negative) Urine Urobilinogen Normal mg/dL (Negative) Urine Leukocyte Esterase Negative /uL (Negative) Urine RBC None seen /hpf (0 - 4) Urine WBC None seen /hpf (0 - 5) Urine Squamous Epithelial Cells Few /hpf (<5) Urine Bacteria None seen /hpf (None Seen) Urine Glucose Normal mg/dL (Normal) Labs and/or images reviewed: Labs reviewed by me, Image(s) reviewed by me Assessment/Plan Assessment/Plan Impression: -acute hypoxic respiratory failure -severe asthma exacerbation -rule out community-acquired pneumonia -ruled out pulmonary embolism -rule out DVT -rheumatoid arthritis -leukocytosis, rule out sepsis Plan: -patient was assessed to be in moderate distress. Tachypneic. Tachycardic. -increase IV Solu-Medrol. Pulse dose of 125 mg x 1 followed by 80 mg t.i.d. -bronchodilators with Xopenex and ipratropium every 6 hours. Start Pulmicort b.i.d. -magnesium 2 g IV -start IV fluids: Normal saline at 125 mL/hr x1 L -check ESR, CRP , influenza -continue O2 supplementation to keep saturation greater than 92%. -repeat labs in a.m. Critical care time spent with patient discussing and formulating plan of care: 40 minutes. This does not include time spent performing procedures. This medical document was created using an electronic medical record system with [employer] dictation system. Although this document has been carefully reviewed, there may still be some phonetic and typographical errors. These areas are purely typographical due to imperfections of the software programs, and do not reflect any compromise in the patient's medical care. Plan discussed with: Patient, Other (RN) My Orders Orders - ARLYN TORRE NP Procedure Category Date Status Time Magnesium Sulfate PHA 01/30/24 Logged 1gm/100ml 10:00 Methylprednisolone PHA 01/30/24 Logged Sod Succ (Solu Medrol 10:00 Methylprednisolone PHA 01/30/24 Logged Sod Succ (Solu Medrol 14:00 Budesonide PHA 01/30/24 Logged (Inhalation) 10:00 Levalbuterol Hcl PHA 01/30/24 Logged (Xopenex Medneb) 10:00 Ipratropium Medneb PHA 01/30/24 Transmitted (Atrovent Medneb) 10:00 NS PHA 01/30/24 Transmitted 10:00 Basic Metabolic Panel LAB 01/31/24 Verified 04:00 Rapid Influenza A&B LAB 01/30/24 Transmitted 09:53 Erythrocyte LAB 01/30/24 Transmitted Sedimentation Rate 09:53 C-Reactive Protein LAB 01/30/24 Transmitted 09:53 Date of Service: Jan 30, 2024 Billing Provider: ARLYN TORRE NP Common Visit Codes: [id number] CARE 30-74 MIN ARLYN TORRE NP Jan 30, 2024 10:03
[2024-01-30] MEDS: IPRATROPIUM BROM 0.5 MG/2.5ML INH SOL NEB SCH (10:07)
[2024-01-30] MEDS: LEVALBUTEROL HCL 1.25 MG/3 ML NEB NEB SCH (10:07)
[2024-01-30] MEDS: SODIUM CHLORIDE 0.9% 1,000 ML IV ONE (10:16)
[2024-01-30] MEDS: FAMOTIDINE (10MG/ML) 2ML VL IV SCH (10:16)
[2024-01-30] MEDS: MAGNESIUM SULFATE 1GM/100ML 100 ML IV SCH (10:16)
[2024-01-30] MEDS: ENOXAPARIN SOD 40 MG/0.4 ML SYRINGE SC SCH (10:16)
--- NOTE | 2024-01-30 10:49 | DVH ---
US BiLat Lower DVT HISTORY: A D-dimer. Right lower extremity pain COMPARISON: None TECHNIQUE: Duplex Doppler evaluation of the deep venous system of the lower extremity from the common femoral veins, superficial femoral vein, great saphenous vein, deep femoral vein, popliteal vein, an d calf veins, including color Doppler and spectral/pulsed waveform analysis, was performed. FINDINGS: Right: - Common femoral vein: Compressible - Deep femoral vein: Compressible - Femoral vein: Compressible - Popliteal vein: Compressible - Posterior tibial vein: Waveforms present - Peroneal vein: Waveforms present - Other: Nothing Left: - Common femoral vein: Compressible - Deep femoral vein: Compressible - Femoral vein: Compressible - Popliteal vein: Compressible - Posterior tibial vein: Waveforms present - Peroneal vein: Waveforms present - Other: Nothing IMPRESSION: No right or left lower extremity deep venous thrombosis.
[2024-01-30 12:08] LABS: Erythrocyte Sedimentation Rate 12 mm/hr (0-20)
[2024-01-30] MEDS ORDERED: methylPREDNISolone SOD SUCC 40 MG/ML VL IV SCH (14:00)
[2024-01-30] MEDS: methylPREDNISolone SOD SUCC 125 MG/2 ML VL IV SCH (14:08)
[2024-01-30 14:23] LABS: Rapid Influenza A Negative (Negative); Rapid Influenza B Negative (Negative)
[2024-01-30] MEDS ORDERED: IBUP-1455 PO (16:40)
[2024-01-30] MEDS: HYDROcodone-ACET 5/325MG TAB PO PRN (16:50)
[2024-01-30] MEDS: ALBUTEROL SULF 2.5 MG/0.5ML(0.5%) NEB SOLN ONE (17:32)
--- NOTE | 2024-01-30 18:55 | DVHINCON2 ---
Date of service: Jan 30, 2024 Referring Physician Alessandro Bentley NP Reason for Consultation Acute hypoxic respiratory failure and asthma exacerbation. History of Present Illness A 29-year-old woman with past medical history of asthma who presented to the ED with c/o shortness of breath. Patient was seen earlier this morning and sent home with antibiotics after breathing treatments. Patient states that shortly after arriving back home she continued to have significant shortness of breath. She was seen and evaluated in the ED, sats in the 80s, had tachycardia, tachypneic, presenting in mild respiratory distress. Labs showed WBC 25.4, platelets 327, sodium 137, K 4.3, BUN 6, creatinine 0.66, glucose 121, protein 8.5, albumin 5.5. Troponin was 11 and D-dimer 1.11. CXR showed no acute cardiopulmonary abnormality. CT angiography pending. Patient was given breathing treatments, started on IV antibiotics. Denied fever, chills, chest pain, headache, dizziness, N/V or other associated sx. Patient was admitted for further care and pulmonary consultation is requested for evaluation and management of acute hypoxic respiratory failure and asthma exacerbation. Review of Systems: 14-point review of systems negative unless otherwise noted above. Past Medical History: Asthma Past Surgical History: None. Medications: Reviewed. Allergies: No known drug allergies. Family History: Mother with hypertension. No family history of premature CAD or lung disorders. Social History: Nonsmoker. No alcohol or illicit drug use. Family History: Hypertension G8 MOTHER Allergies: Coded Allergies: NO KNOWN ALLERGIES (Unverified , 03/10/23) Home Meds Active Scripts Amoxicillin & Pot Clavulanate (AUGMENTIN TABLET) 875 Mg Tb, 875 MG PO BID, #14 TAB Prov:BECKY BENSON MD 01/29/24 Methylprednisolone (Medrol Dosepak) 4 Mg [place], 4 MG PO UD, #21 TAB UAD Prov:BECKY BENSON MD 01/29/24 Azithromycin (Zithromax Z-[place]) 250 Mg Tab, 250 MG PO DAILY for 5 Days, #5 TAB Prov:MYLES ALFRED 03/10/23 Prednisone (Prednisone) 20 Mg Tab, 20 MG PO DAILY for 5 Days, #5 MG Prov:MYLES ALFRED 03/10/23 Promethazine-Dm (Promethazine Dm 6.25-15 mg/5Ml) 1 Cleo Cleo, 10 ML PO TID PRN, #240 ML Prov:MYLES ALFRED [employer] 03/10/23 Albuterol Sulfate (Albuterol Sulfate Hfa) 108 Mcg/Act Aer, 108 MCG IN TID PRN, #1 AER Prov:MYLES ALFRED [employer] WORK[employer] 03/10/23 Reported Medications Ibuprofen Micronized (Ibuprofen) 800 Mg Tab, 800 MG PO PRN for pain, TAB 01/30/24 Current Medications Current Medications Medications (Trade) Dose Ordered Sig/Brittnee Route PRN Reason Start Time Stop Time Status Last Admin Sumatriptan Succinate (Imitrex Inj) 6 mg ONCE STAT SC 01/30/24 02:50 01/30/24 02:52 DC 01/30/24 03:10 Ceftriaxone Sodium 50 ml @ 100 mls/hr DAILY@09 IV 01/30/24 09:00 01/30/24 09:05 Azithromycin 250 ml @ 125 mls/hr DAILY@0200 IV 01/31/24 02:00 Methylprednisolone Sodium Succinate (Solu Medrol) 40 mg Q8HR IV 01/30/24 14:00 01/30/24 09:58 DC Sodium Chloride 1,000 ml @ 60 mls/hr [id number] IV 01/30/24 03:00 01/30/24 09:58 DC 01/30/24 03:25 Acetaminophen/ Hydrocodone Bitart ([place] 5/325MG Tab) 1 tab Q4HP PRN PO MODERATE PAIN (4-6 PAIN SCALE) 01/30/24 03:00 01/30/24 16:50 Ondansetron HCl (Zofran) 4 mg Q4HP PRN IV NAUSEA / VOMITING 01/30/24 03:00 Docusate Sodium (Colace Capsule) 100 mg BIDPRN PRN PO FOR CONSTIPATION 01/30/24 03:00 Enoxaparin Sodium (Lovenox) 40 mg DAILY SC 01/30/24 10:00 01/30/24 10:16 Acetaminophen (Tylenol Tablet) 650 mg Q6HP PRN PO PAIN SCALE 1-3 OR TEMP>100.4 01/30/24 03:00 Nitroglycerin (Ntrostat Sublingual) 0.4 mg Q5MINP PRN SL FOR CHEST PAIN 01/30/24 03:00 Morphine Sulfate 2 mg Q30M PRN IV FOR CHEST PAIN 01/30/24 03:00 Famotidine (Pepcid Injection) 20 mg Q12HR IV 01/30/24 10:00 01/30/24 10:16 Levalbuterol HCl (Xopenex Medneb) 1.25 mg Q4HPRN PRN NEB SHORTNESS OF BREATH 01/30/24 03:45 01/30/24 09:58 DC 01/30/24 07:33 Ipratropium [place] (Atrovent Medneb) 0.5 mg Q4HPRN PRN NEB SHORTNESS OF BREATH 01/30/24 03:45 01/30/24 09:58 DC 01/30/24 07:33 Magnesium Sulfate/ Dextrose 100 ml @ 100 mls/hr Q1HR IV 01/30/24 10:00 01/30/24 11:59 DC 01/30/24 11:11 Methylprednisolone Sodium Succinate (Solu Medrol) 80 mg Q8HR IV 01/30/24 14:00 01/30/24 14:08 Budesonide (Pulmicort) 0.5 mg BID NEB 01/30/24 10:00 01/30/24 10:36 DC Levalbuterol HCl (Xopenex Medneb) 1.25 mg Q6HR NEB 01/30/24 10:00 01/30/24 13:40 Ipratropium [place] (Atrovent Medneb) 0.5 mg Q6HR NEB 01/30/24 10:00 01/30/24 13:39 Budesonide (Pulmicort) 0.5 mg BID NEB 01/30/24 22:00 Vital Signs Vital Signs Date Time Temp Pulse Resp B/P (MAP) Pulse Ox O2 Delivery O2 Flow Rate FiO2 01/30/24 17:28 120 24 100 01/30/24 17:00 97.4 124/77 (93) 97.4 01/30/24 16:40 Non-Rebreather 15 N/A Physical Exam Gen.: Patient lying in bed in no apparent distress. On supplemental oxygen. Head: Normocephalic, atraumatic. Eyes: EOMI/PERRLA. Ears: Normal hearing. Normal anatomy. Neck/trachea: Trachea midline, supple. Nose: Normal external anatomy. Mouth: Moist mucous membranes. Chest: Decreased air entry bilaterally. No wheezing or rhonchi. Cardiovascular: Positive S1, positive S2. Regular rate and rhythm. Abdomen: Positive bowel sounds in all 4 quadrants. Soft, non-tender, non- distended. : Deferred. Rectal: Deferred. Skin: Warm, dry. Intact. Extremities: 2+ radial pulses bilaterally. No lower extremity edema. Neuro: Awake, alert, oriented x3. No gross motor or sensory deficits. Cranial nerves II through XII intact. Gait not assessed. Labs/Diagnostic Data Labs Test 01/30/24 12:45 01/30/24 06:35 01/30/24 06:30 01/30/24 04:20 Range/Units Influenza Type A Antigen Negative Negative Influenza Type B Antigen Negative Negative White Blood Count 19.6 H 4.4-10.8 10^3/uL Red Blood Count 4.88 4.0-5.20 10^6/uL Hemoglobin 14.2 12.2-16.2 g/dL Hematocrit 42.7 36.0-46.0 % Mean Corpuscular Volume 87.5 80.0-100.0 fL Mean Corpuscular Hemoglobin 29.1 28.0-32.0 pg Mean Corpuscular Hemoglobin Concent 33.2 32.0-36.0 g/dL Red Cell Distribution Width 14.2 11.8-14.3 % Platelet Count 259 140-450 10^3/uL Mean Platelet Volume 9.1 6.9-10.8 fL Neutrophils (%) (Auto) 37.0-80.0 % Lymphocytes (%) (Auto) 10.0-50.0 % Monocytes (%) (Auto) 0.0-12.0 % Basophils (%) (Auto) 0.0-2.0 % Neutrophils # (Auto) 1.6-8.6 10 ^3/uL Lymphocytes # (Auto) 0.4-5.4 10 ^3/uL Monocytes # (Auto) 0-1.3 10 ^3/uL Differential Total Cells Counted 100.0 100 Neutrophils % (Manual) 87 H 37.0-80.0 Band Neutrophils % (Manual) 5 Lymphocytes % (Manual) 5 L 10.0-50.0 Monocytes % (Manual) 3 0-12 Eosinophils % (Manual) 0 0-7 Basophils % (Manual) 0 0.0-2.0 Metamyelocytes % (manual) 0 Myelocytes % (Manual) 0 Promyelocytes % (Manual) 0 Blast Cells % (Manual) 0 Reactive Lymphocytes 0 Platelet Estimate Adequate Red Blood Cell Morphology Normal Erythrocyte Sedimentation Rate 12 0-20 mm/hr Sodium Level 140 136-145 mmol/L Potassium Level 4.0 3.5-5.1 mmol/L Chloride Level 108 H 98-107 mmol/L Carbon Dioxide Level 20 20-31 mmol/L Anion Gap 12 5-15 Blood Urea Nitrogen 7 L 9-23 mg/dL Creatinine 0.67 0.550-1.02 mg/dL Glomerular Filtration Rate Calc 121 >90 mL/min BUN/Creatinine Ratio 10.4 10.0-20.0 Serum Glucose 156 H 74-106 mg/dL Calcium Level 9.6 8.7-10.4 mg/dL Total Bilirubin 0.7 0.2-1.0 mg/dL Aspartate Amino Transferase (AST) 15 13-40 U/L Alanine Aminotransferase (ALT) 15 7-40 U/L Alkaline Phosphatase 66 46-116 U/L C-Reactive Protein High Sensitivity 2.99 H <1.0 mg/dL Total Protein 7.5 5.7-8.2 g/dL Albumin 4.7 3.2-4.8 g/dL SARS-CoV-2 Antigen (Rapid) Negative NEGATIVE Urine Color Light-yellow Yellow Urine Clarity Clear Clear Urine pH 6.5 5.0-9.0 Urine Specific [place] 1.032 1.001-1.035 Urine Protein Negative Negative Urine Ketones 1+ H Negative Urine Blood Negative Negative /uL Urine Nitrite Negative Negative Urine Bilirubin Negative Negative Urine Urobilinogen Normal Negative mg/dL Urine Leukocyte Esterase Negative Negative /uL Urine RBC None seen 0 - 4 /hpf Urine WBC None seen 0 - 5 /hpf Urine Squamous Epithelial Cells Few <5 /hpf Urine Bacteria None seen None Seen /hpf Urine Glucose Normal Normal mg/dL Test 01/30/24 00:45 Range/Units Eosinophils (%) (Auto) 0.0 0.0-7.0 % Eosinophils # (Auto) 0 0-0.8 10 ^3/uL Basophils # (Auto) 0.1 0-0.2 10 ^3/uL Nucleated Red Blood Cells 0.0 % D-Dimer, Quantitative 1.11 H 0.0-0.49 mg/L FEU Troponin I High Sensitivity 11 </=34 ng/L Beta HCG, Quantitative 0.4 L 1.5-4.2 mIU/mL Assessment Impression: Acute hypoxic respiratory failure Asthma exacerbation Rheumatoid arthritis Leukocytosis Elevated D-dimer GGO on imaging Plan: Upgrade to VANGIE. On supplemental oxygen 15 LPM nonrebreather. Start high-flow oxygen at flow rate 50, FiO2 100%. Pulse dose steroids Bronchodilators/Pulmicort BID. Continue antibiotics WBC trending down. Elevated D-dimer. Ruled out DVT in bilateral lower extremities Ruled out pulmonary embolism. Follow up cardiology recommendations. Monitor renal function. Monitor electrolytes. Supplement as necessary. Monitor ins and outs. DVT prophylaxis- Lovenox GI prophylaxis- Pepcid Prognosis: Poor given patient's multiple co-morbidities. Condition: Critical Rest of plan per hospitalist and other consultants. A total of 35 minutes of critical care time was spent reviewing the patient record, examining the patient, making a diagnostic and therapeutic plan, discussing this plan with the medical personnel, following up on diagnostic studies and following the patient for clinical stability excluding any and all procedures. At least 50% of this time was spent in direct, [id number] contact. Thank you, Alessandro Bentley NP, for allowing me to participate in this patient's care. Further recommendations will depend on the patient's clinical course. Please do not hesitate to contact me if you have any questions or concerns. This medical document was created using an electronic medical record system with [employer] dictation system. Although these documentations are being carefully reviewed, there may still be some phonetic and typographical changes. The errors are purely typographical, due to imperfection on the software [employer], and do not reflect any compromise in the patient's medical care. Plan discussed with: Other (SHERRY Bentley MD) FANNIE SULLIVAN MD Jan 30, 2024 18:54
[2024-01-30 22:09] LABS: Base Excess -3.4 mmol/L (-2.0-3.0)
[2024-01-31] VITALS (99 sets, daily range): BP systolic 89–132; BP diastolic 49–94; PULSE 73–135; RESP 13–44; TEMP 97.6–98.8; O2SAT 92–99
[2024-01-31] MEDS: BUDESONIDE (INHALATION) 0.5 MG/2 ML NEB NEB SCH (00:16)
[2024-01-31] MEDS: AZITHROMYCIN 500MG/ 250ML 250 ML IV SCH (01:16)
[2024-01-31] MEDS: LORazepam 2MG/ML-1ML VIAL IV PRN (02:47)
[2024-01-31 05:13] LABS: Basophils # (auto) 0.2 10 ^3/uL (0-0.2); Basophils % (auto) 0.9 % (0.0-2.0); Eosinophils # (auto) 0 10 ^3/uL (0-0.8); Hematocrit 40.3 % (36.0-46.0); Hemoglobin 13.2 g/dL (12.2-16.2); Lymphocytes # (auto) 0.8 10 ^3/uL (0.4-5.4); Lymphocytes % (auto) 4.1 % (10.0-50.0); Mean Corpuscular Hgb Conc. 32.7 g/dL (32.0-36.0); Mean Corpuscular Volume 88.6 fL (80.0-100.0); Monocytes # (auto) 1.1 10 ^3/uL (0-1.3); Monocytes % (auto) 5.8 % (0.0-12.0); Neutrophils # (auto) 17.3 10 ^3/uL (1.6-8.6); Neutrophils % (auto) 89.2 % (37.0-80.0); Platelet Count (auto) 268 10^3/uL (140-450); Red Blood Cells 4.55 10^6/uL (4.0-5.20); Red Cell Distribution Width 14.3 % (11.8-14.3); White Blood Cell 19.4 10^3/uL (4.4-10.8)
[2024-01-31 05:37] LABS: Alanine Aminotransferase 16 U/L (7-40); Albumin 4.8 g/dL (3.2-4.8); Alkaline Phosphatase 65 U/L (46-116); Anion Gap 10 (5-15); Aspartate Aminotransferase 15 U/L (13-40); BUN/Creatinine Ratio 15.4 (10.0-20.0); Bilirubin, Total 0.6 mg/dL (0.2-1.0); Blood Urea Nitrogen 10 mg/dL (9-23); Calcium 9.6 mg/dL (8.7-10.4); Carbon Dioxide 25 mmol/L (20-31); Chloride 105 mmol/L (98-107); Glucose 127 mg/dL (74-106); Potassium 4.6 mmol/L (3.5-5.1); Sodium 140 mmol/L (136-145); Total Protein 7.7 g/dL (5.7-8.2)
[2024-01-31] MEDS: guaiFENesin-CODEINE Liq 5 ML UD PO PRN (09:13)
[2024-01-31] MEDS: LORATADINE 10 MG TAB PO SCH (09:14)
[2024-01-31] MEDS: ALBUTEROL SULF 2.5 MG/0.5ML(0.5%) NEB SOLN NEB SCH (09:30)
[2024-01-31] MEDS: IPRATROPIUM BROM 0.5 MG/2.5ML INH SOL NEB SCH (09:30)
--- NOTE | 2024-01-31 10:59 | DVHPN2 ---
Subjective Patient states that she has mild improvement with her breathing compared yesterday. Reviewed: Care Plan, H&P, Labs, Medications, Previous Orders Changes from previous H/P or p: Changes General: Per HPI Eyes: No Pain, No Vision change, No Conjunctivae inflammation, No Eyelid inflammation, No Other, No Redness ENT: No Ear pain, No Ear discharge, No Nose pain, No Nose discharge, No Nose congestion, No Mouth pain, No Mouth swelling, No Throat pain, No Throat swelling, No Other Cardiovascular: No Chest Pain, No Palpitations, No Orthopnea, No Paroxysmal Noc. Dyspnea, No Edema, No Lt Headedness, No Other Respiratory: Cough; No Dry; Shortness of breath, SOB with excertion; No Wheezing, No Hemoptysis, No Pleuritic Pain, No Sputum; Other (SOB AT REST) Gastrointestinal: No Nausea, No Vomiting, No Abdominal Pain, No Diarrhea, No Constipation, No Melena, No Hematochezia, No Other Genitourinary: No Dysuria, No Frequency, No Incontinence, No Hematuria, No Retention, No Other Musculoskeletal: No other, No neck pain, No shoulder pain, No arm pain, No back pain, No hand pain, No leg pain, No foot pain Skin: No Rash, No Lesions, No Jaundice, No Bruising, No Other Objective Vitals Vital Signs Date Time Temp Pulse Resp B/P (MAP) Pulse Ox O2 Delivery O2 Flow Rate FiO2 01/31/24 09:45 80 25 126/70 (88) 96 01/31/24 09:30 30.0 55 01/31/24 08:00 98.0 98.0 01/31/24 08:00 Hi-Flow Heated NC+ Intake/Output Intake and Output 01/31/24 07:00 Intake Total 2205 ml Output Total 0 ml Balance 2205 ml Intake Oral 1250 ml IV Total 955 ml Output Urine Total 0 ml # Voids 3 General Appearance: Alert, Oriented X3, Cooperative, moderate distress HEENT: Atraumatic, PERRLA Lungs: Other (Inspiratory and expiratory wheezing. Patient on non-rebreather at 15 liters/minute) Cardiovascular: Normal S1, Normal S2, Other (Sinus tachycardia) Abdomen: Normal bowel sounds, Soft, No tenderness Musculoskeletal: Normal sensory function, Normal motor function Neuro: Normal speech Psych/Mental Status: Mental status NL, Mood NL Medications Current Medications Medications Dose Ordered Sig/Brittnee Route Start Time Stop Time Status Last Admin Dose Admin Ceftriaxone Sodium 50 ml @ 100 mls/hr DAILY@09 IV 01/30/24 09:00 01/31/24 08:17 100 MLS/HR Azithromycin 250 ml @ 125 mls/hr DAILY@0200 IV 01/31/24 02:00 01/31/24 01:16 125 MLS/HR Acetaminophen/ Hydrocodone Bitart 1 tab Q4HP PRN PO 01/30/24 03:00 01/31/24 06:20 1 TAB Ondansetron HCl 4 mg Q4HP PRN IV 01/30/24 03:00 Docusate Sodium 100 mg BIDPRN PRN PO 01/30/24 03:00 Enoxaparin Sodium 40 mg DAILY SC 01/30/24 10:00 01/31/24 09:15 40 MG Acetaminophen 650 mg Q6HP PRN PO 01/30/24 03:00 Nitroglycerin 0.4 mg Q5MINP PRN SL 01/30/24 03:00 Morphine Sulfate 2 mg Q30M PRN IV 01/30/24 03:00 Famotidine 20 mg Q12HR IV 01/30/24 10:00 01/31/24 09:13 20 MG Budesonide 0.5 mg BID NEB 01/30/24 22:00 01/31/24 05:47 0.5 MG Lorazepam 1 mg Q8HP PRN IV 01/30/24 23:15 01/31/24 10:17 1 MG Methylprednisolone Sodium Succinate 125 mg Q8HR IV 01/31/24 14:00 Guaifenesin/ Codeine Phosphate 5 ml Q4HPRN PRN PO 01/31/24 08:30 01/31/24 09:13 5 ML Loratadine 10 mg DAILY PO 01/31/24 10:00 01/31/24 09:14 10 MG Albuterol 2.5 mg Q4HR NEB 01/31/24 10:00 01/31/24 09:30 2.5 MG Ipratropium [place] 0.5 mg Q4HR NEB 01/31/24 10:00 01/31/24 09:30 0.5 MG Laboratory Results Laboratory Tests 01/31/24 04:48 Chemistry Test 01/31/24 04:48 Albumin 4.8 g/dL (3.2-4.8) Calcium Level 9.6 mg/dL (8.7-10.4) Magnesium Level 2.5 mg/dL (1.6-2.6) Total Protein 7.7 g/dL (5.7-8.2) Cardiac Markers Test 01/30/24 23:24 B-Type Natriuretic Peptide 45.18 pg/mL (0-100) LFT Test 01/31/24 04:48 Alanine Aminotransferase (ALT) 16 U/L (7-40) Alkaline Phosphatase 65 U/L (46-116) Aspartate Amino Transferase (AST) 15 U/L (13-40) Total Bilirubin 0.6 mg/dL (0.2-1.0) Urinalysis Test 01/30/24 04:20 Urine Color Light-yellow (Yellow) Urine Clarity Clear (Clear) Urine pH 6.5 (5.0-9.0) Urine Specific [place] 1.032 (1.001-1.035) Urine Protein Negative (Negative) Urine Ketones 1+ (Negative) H Urine Blood Negative /uL (Negative) Urine Nitrite Negative (Negative) Urine Bilirubin Negative (Negative) Urine Urobilinogen Normal mg/dL (Negative) Urine Leukocyte Esterase Negative /uL (Negative) Urine RBC None seen /hpf (0 - 4) Urine WBC None seen /hpf (0 - 5) Urine Squamous Epithelial Cells Few /hpf (<5) Urine Bacteria None seen /hpf (None Seen) Urine Glucose Normal mg/dL (Normal) Blood Gas Results Test 01/30/24 21:56 Arterial Blood pH 7.421 (7.350-7.450) FiO2 % 70.0 Labs and/or images reviewed: Labs reviewed by me, Image(s) reviewed by me Assessment/Plan Assessment/Plan Impression: -acute hypoxic respiratory failure -severe asthma exacerbation -rule out community-acquired pneumonia -ruled out pulmonary embolism -rule out DVT -rheumatoid arthritis -leukocytosis, rule out sepsis Plan: Events: Patient transferred to the step-down ICU. Now on high-flow nasal cannula 60%. -increase bronchodilators to q.4 hours with DuoNebs given improved heart rate. -continue Solu-Medrol with increased rate at 125 mg q.8 hours -start antihistamine given patient reporting that she is around multiple animals. -negative for influenza, COVID -continue O2 supplementation to keep saturation greater than 92%. -pulmonary consultation: Recommendations appreciated -antitussive -repeat labs in a.m. Critical care time spent with patient discussing and formulating plan of care: 40 minutes. This does not include time spent performing procedures. This medical document was created using an electronic medical record system with [employer] system. Although this document has been carefully reviewed, there may still be some phonetic and typographical errors. These areas are purely typographical due to imperfections of the software programs, and do not reflect any compromise in the patient's medical care. Plan discussed with: Patient, Other (RN) My Orders Orders - ARLYN TORRE NP Procedure Category Date Status Time * Cardiology Consult CONS 01/30/24 Transmitted 14:07 Methylprednisolone PHA 01/31/24 In Process Sod Succ (Solu Medrol 14:00 Guaifenesin-Codeine PHA 01/31/24 In Process Liquid (Robitussin/C 08:30 Loratadine Tablet PHA 01/31/24 In Process (Claritin Tablet) 10:00 Albuterol Medneb PHA 01/31/24 In Process (Ventolin Medneb) 10:00 Ipratropium Medneb PHA 01/31/24 In Process (Atrovent Medneb) 10:00 Basic Metabolic Panel LAB 02/01/24 Verified 04:00 Magnesium LAB 02/01/24 Verified 04:00 Complete Blood Count LAB 02/01/24 Verified 04:00 Date of Service: Jan 31, 2024 Billing Provider: ARLYN TORRE NP Common Visit Codes: 99105-[id number] CARE 30-74 MIN ARLYN TORRE NP Jan 31, 2024 10:59
[2024-01-31] MEDS: ALBUTEROL SULF 2.5 MG/0.5ML(0.5%) NEB SOLN NEB ONE (11:42)
[2024-01-31] MEDS ORDERED: IPRATROPIUM BROM 0.5 MG/2.5ML INH SOL NEB SCH (12:00)
[2024-01-31] MEDS ORDERED: ALBUTEROL SULF 2.5 MG/0.5ML(0.5%) NEB SOLN NEB SCH (12:00)
[2024-01-31] MEDS: methylPREDNISolone SOD SUCC 125 MG/2 ML VL IV SCH (13:19)
--- NOTE | 2024-01-31 20:49 | ECG ---
[facility] Test Date: 2024-01-30 Test Time: 02:32:01 Pat Name: SARAHI GARRETT Department: ER Room: 0221 Gender: F Heel Splitter: SLOANE : 1995 Requested By: LUÍS GROSSMAN Order Number: [id number] Reading MD: Juan Stevenson Measurements Intervals [place] Rate: 113 P: 86 SD: 163 QRS: 97 QRSD: 95 T: 73 QT: 346 QTc: 475 Interpretive Statements Sinus tachycardia Borderline right axis deviation RSR' in V1 or V2, probably normal variant Electronically Signed On 02-05-2024 13:20:07 PST by Juan Stevenson Please click the below link to view image of tracing.
--- NOTE | 2024-01-31 22:07 | DVHPN2 ---
Progress Note - Dictate Date Seen: Jan 31, 2024 Medical Necessity Reason Pt with a Central, PICC or Fol: No Subjective Patient seen and examined at bedside. Remains on supplemental oxygen Overnight events reviewed. vital signs Vital Sign Date Time Temp Pulse Resp B/P (MAP) Pulse Ox O2 Delivery O2 Flow Rate FiO2 01/31/24 18:45 117 34 132/71 (91) 96 01/31/24 18:05 30.0 50 01/31/24 16:00 98.0 98.0 01/31/24 08:00 Hi-Flow Heated NC+ Total Intake and Output 01/30/24 01/30/24 01/31/24 15:00 23:00 07:00 Intake Total 830 ml 825 ml 550 ml Output Total 0 ml Balance 830 ml 825 ml 550 ml medications Current Medications Medications Dose Ordered Sig/Brittnee Route Start Time Stop Time Status Last Admin Dose Admin Ceftriaxone Sodium 50 ml @ 100 mls/hr DAILY@09 IV 01/30/24 09:00 01/31/24 08:17 100 MLS/HR Azithromycin 250 ml @ 125 mls/hr DAILY@0200 IV 01/31/24 02:00 01/31/24 01:16 125 MLS/HR Acetaminophen/ Hydrocodone Bitart 1 tab Q4HP PRN PO 01/30/24 03:00 01/31/24 21:43 1 TAB Ondansetron HCl 4 mg Q4HP PRN IV 01/30/24 03:00 Docusate Sodium 100 mg BIDPRN PRN PO 01/30/24 03:00 Enoxaparin Sodium 40 mg DAILY SC 01/30/24 10:00 01/31/24 09:15 40 MG Acetaminophen 650 mg Q6HP PRN PO 01/30/24 03:00 Nitroglycerin 0.4 mg Q5MINP PRN SL 01/30/24 03:00 Morphine Sulfate 2 mg Q30M PRN IV 01/30/24 03:00 Famotidine 20 mg Q12HR IV 01/30/24 10:00 01/31/24 21:42 20 MG Budesonide 0.5 mg BID NEB 01/30/24 22:00 01/31/24 05:47 0.5 MG Lorazepam 1 mg Q8HP PRN IV 01/30/24 23:15 01/31/24 10:17 1 MG Methylprednisolone Sodium Succinate 125 mg Q8HR IV 01/31/24 14:00 01/31/24 21:42 125 MG Guaifenesin/ Codeine Phosphate 5 ml Q4HPRN PRN PO 01/31/24 08:30 01/31/24 21:43 5 ML Loratadine 10 mg DAILY PO 01/31/24 10:00 01/31/24 09:14 10 MG Albuterol 2.5 mg Q4HR NEB 01/31/24 10:00 01/31/24 18:31 2.5 MG Ipratropium [place] 0.5 mg Q4HR NEB 01/31/24 10:00 01/31/24 18:31 0.5 MG objective Gen.: Patient lying in bed in no apparent distress. On supplemental oxygen. Head: Normocephalic, atraumatic. Eyes: EOMI/PERRLA. Ears: Normal hearing. Normal anatomy. Neck/trachea: Trachea midline, supple. Nose: Normal external anatomy. Mouth: Moist mucous membranes. Chest: Decreased air entry bilaterally. No wheezing or rhonchi. Cardiovascular: Positive S1, positive S2. Regular rate and rhythm. Abdomen: Positive bowel sounds in all 4 quadrants. Soft, non-tender, non- distended. : Deferred. Rectal: Deferred. Skin: Warm, dry. Intact. Extremities: 2+ radial pulses bilaterally. No lower extremity edema. Neuro: Awake, alert, oriented x3. No gross motor or sensory deficits. Cranial nerves II through XII intact. Gait not assessed. laboratory and microbiology Laboratory Tests 01/31/24 04:48 Test 01/31/24 04:48 Range/Units Serum Glucose 127 H 74-106 mg/dL Assessment/Plan Impression: Acute hypoxic respiratory failure Asthma exacerbation Rheumatoid arthritis Leukocytosis Elevated D-dimer GGO on imaging Events: On high flow O2 at 30 LPM flow rate, 50% FiO2. Taper O2 as tolerated Continue bronchodilators. Continue IV steroids Continue antibiotics Wheezing improved. Labs and imaging reviewed. Rest of plan as noted below. Plan: Supplemental oxygen On high flow O2 at 30 LPM flow rate, 50% FiO2. Taper O2 as tolerated Pulse dose steroids Bronchodilators/Pulmicort BID. Continue antibiotics WBC trending down. Elevated D-dimer. Ruled out DVT in bilateral lower extremities Ruled out pulmonary embolism. Follow up cardiology recommendations. Monitor renal function. Monitor electrolytes. Supplement as necessary. Monitor ins and outs. DVT prophylaxis- Lovenox GI prophylaxis- Pepcid Prognosis: Poor given patient's multiple co-morbidities. Condition: Critical Rest of plan per hospitalist and other consultants. A total of 35 minutes of critical care time was spent reviewing the patient record, examining the patient, making a diagnostic and therapeutic plan, discussing this plan with the medical personnel, following up on diagnostic studies and following the patient for clinical stability excluding any and all procedures. At least 50% of this time was spent in direct, [id number] contact. Thank you, Alessandro Bentley NP, for allowing me to participate in this patient's care. Further recommendations will depend on the patient's clinical course. Please do not hesitate to contact me if you have any questions or concerns. This medical document was created using an electronic medical record system with [employer] dictation system. Although these documentations are being carefully reviewed, there may still be some phonetic and typographical changes. The errors are purely typographical, due to imperfection on the software program, and do not reflect any compromise in the patient's medical care. Plan discussed with: Other (SANDRA Morgan) Critical Care Time(min): 35 FANNIE SULLIVAN MD Jan 31, 2024 22:07
[2024-02-01] VITALS (51 sets, daily range): BP systolic 85–128; BP diastolic 42–84; PULSE 72–130; RESP 16–37; TEMP 98–98.8; O2SAT 91–98
[2024-02-01 05:13] LABS: Basophils # (auto) 0 10 ^3/uL (0-0.2); Basophils % (auto) 0.1 % (0.0-2.0); Eosinophils # (auto) 0 10 ^3/uL (0-0.8); Hematocrit 39.8 % (36.0-46.0); Hemoglobin 13.5 g/dL (12.2-16.2); Lymphocytes # (auto) 1.1 10 ^3/uL (0.4-5.4); Mean Corpuscular Hemoglobin 29.7 pg (28.0-32.0); Mean Corpuscular Hgb Conc. 33.9 g/dL (32.0-36.0); Mean Corpuscular Volume 87.7 fL (80.0-100.0); Monocytes # (auto) 0.9 10 ^3/uL (0-1.3); Monocytes % (auto) 5.9 % (0.0-12.0); Neutrophils # (auto) 13.4 10 ^3/uL (1.6-8.6); Nucleated Red Blood Cells % 0.1 %; Platelet Count (auto) 250 10^3/uL (140-450); Red Blood Cells 4.54 10^6/uL (4.0-5.20); Red Cell Distribution Width 13.9 % (11.8-14.3); White Blood Cell 15.4 10^3/uL (4.4-10.8)
[2024-02-01 05:35] LABS: Calcium 9.7 mg/dL (8.7-10.4); Chloride 105 mmol/L (98-107); Potassium 4.6 mmol/L (3.5-5.1); Sodium 139 mmol/L (136-145)
[2024-02-01 05:36] LABS: Anion Gap 9 (5-15); Carbon Dioxide 25 mmol/L (20-31)
[2024-02-01 05:41] LABS: BUN/Creatinine Ratio 15.5 (10.0-20.0); Blood Urea Nitrogen 9 mg/dL (9-23); Glucose 126 mg/dL (74-106); Magnesium 2.4 mg/dL (1.6-2.6)
[2024-02-01] MEDS: ALBUTEROL SULF 2.5 MG/0.5ML(0.5%) NEB SOLN NEB ONE (09:38)
--- NOTE | 2024-02-01 10:23 | DVH ---
CHEST RADIOGRAPH Indication:Asthma exacerbation Technique: Single frontal view of the chest was obtained COMPARISON: XY CHEST PORTABLE on DOS: 01/30/24, XY CHEST XRAY 1 VIEW on DOS: 03/10/23 FINDINGS: Lines and Tubes: None Lungs: Right basilar opacity may reflect atelectasis or mild pneumonia Pleura: No effusion. No pneumothorax. Cardiomediastinal contours: Unremarkable Bones: Unremarkable IMPRESSION: 1. Right basilar opacity may reflect atelectasis or mild pneumonia
--- NOTE | 2024-02-01 10:37 | DVHPN2 ---
Subjective Patient states that she has mild improvement with her breathing compared yesterday. Reviewed: Care Plan, H&P, Labs, Medications, Previous Orders Changes from previous H/P or p: No Changes General: Per HPI Eyes: No Pain, No Vision change, No Conjunctivae inflammation, No Eyelid inflammation, No Other, No Redness ENT: No Ear pain, No Ear discharge, No Nose pain, No Nose discharge, No Nose congestion, No Mouth pain, No Mouth swelling, No Throat pain, No Throat swelling, No Other Cardiovascular: No Chest Pain, No Palpitations, No Orthopnea, No Paroxysmal Noc. Dyspnea, No Edema, No Lt Headedness, No Other Respiratory: Cough; No Dry; Shortness of breath, SOB with excertion; No Wheezing, No Hemoptysis, No Pleuritic Pain, No Sputum; Other (SOB AT REST) Gastrointestinal: No Nausea, No Vomiting, No Abdominal Pain, No Diarrhea, No Constipation, No Melena, No Hematochezia, No Other Genitourinary: No Dysuria, No Frequency, No Incontinence, No Hematuria, No Retention, No Other Musculoskeletal: No other, No neck pain, No shoulder pain, No arm pain, No back pain, No hand pain, No leg pain, No foot pain Skin: No Rash, No Lesions, No Jaundice, No Bruising, No Other Objective Vitals Vital Signs Date Time Temp Pulse Resp B/P (MAP) Pulse Ox O2 Delivery O2 Flow Rate FiO2 02/01/24 09:38 81 20 97 30.0 50 02/01/24 08:00 Hi-Flow Heated NC+ 02/01/24 08:00 98.2 102/54 (70) 98.2 Intake/Output Intake and Output 02/01/24 07:00 Intake Total 1880 ml Balance 1880 ml Intake Oral 1580 ml IV Total 300 ml # Voids 4 General Appearance: Alert, Oriented X3, Cooperative, moderate distress HEENT: Atraumatic, PERRLA Lungs: Other (Inspiratory and expiratory wheezing. Patient on non-rebreather at 15 liters/minute) Cardiovascular: Normal S1, Normal S2, Other (Sinus tachycardia) Abdomen: Normal bowel sounds, Soft, No tenderness Musculoskeletal: Normal sensory function, Normal motor function Neuro: Normal speech Psych/Mental Status: Mental status NL, Mood NL Medications Current Medications Medications Dose Ordered Sig/Brittnee Route Start Time Stop Time Status Last Admin Dose Admin Ceftriaxone Sodium 50 ml @ 100 mls/hr DAILY@09 IV 01/30/24 09:00 02/01/24 07:25 100 MLS/HR Azithromycin 250 ml @ 125 mls/hr DAILY@0200 IV 01/31/24 02:00 02/01/24 01:48 125 MLS/HR Acetaminophen/ Hydrocodone Bitart 1 tab Q4HP PRN PO 01/30/24 03:00 02/01/24 10:12 1 TAB Ondansetron HCl 4 mg Q4HP PRN IV 01/30/24 03:00 Docusate Sodium 100 mg BIDPRN PRN PO 01/30/24 03:00 Enoxaparin Sodium 40 mg DAILY SC 01/30/24 10:00 02/01/24 08:28 40 MG Acetaminophen 650 mg Q6HP PRN PO 01/30/24 03:00 Nitroglycerin 0.4 mg Q5MINP PRN SL 01/30/24 03:00 Morphine Sulfate 2 mg Q30M PRN IV 01/30/24 03:00 Famotidine 20 mg Q12HR IV 01/30/24 10:00 02/01/24 08:27 20 MG Budesonide 0.5 mg BID NEB 01/30/24 22:00 02/01/24 06:44 0.5 MG Lorazepam 1 mg Q8HP PRN IV 01/30/24 23:15 02/01/24 05:44 1 MG Methylprednisolone Sodium Succinate 125 mg Q8HR IV 01/31/24 14:00 02/01/24 05:44 125 MG Guaifenesin/ Codeine Phosphate 5 ml Q4HPRN PRN PO 01/31/24 08:30 02/01/24 10:06 5 ML Loratadine 10 mg DAILY PO 01/31/24 10:00 02/01/24 08:27 10 MG Albuterol 2.5 mg Q4HR NEB 01/31/24 10:00 02/01/24 06:44 2.5 MG Ipratropium [place] 0.5 mg Q4HR NEB 01/31/24 10:00 02/01/24 09:38 0.5 MG Laboratory Results Laboratory Tests 02/01/24 04:52 Chemistry Test 02/01/24 04:52 Calcium Level 9.7 mg/dL (8.7-10.4) Magnesium Level 2.4 mg/dL (1.6-2.6) Urinalysis Test 01/30/24 04:20 Urine Color Light-yellow (Yellow) Urine Clarity Clear (Clear) Urine pH 6.5 (5.0-9.0) Urine Specific [place] 1.032 (1.001-1.035) Urine Protein Negative (Negative) Urine Ketones 1+ (Negative) H Urine Blood Negative /uL (Negative) Urine Nitrite Negative (Negative) Urine Bilirubin Negative (Negative) Urine Urobilinogen Normal mg/dL (Negative) Urine Leukocyte Esterase Negative /uL (Negative) Urine RBC None seen /hpf (0 - 4) Urine WBC None seen /hpf (0 - 5) Urine Squamous Epithelial Cells Few /hpf (<5) Urine Bacteria None seen /hpf (None Seen) Urine Glucose Normal mg/dL (Normal) Microbiology Microbiology Date/Time Source Procedure Growth Status 01/31/24 04:48 Blood Blood Culture - Preliminary NO GROWTH AFTER 24 HOURS OF INCUBATION. Resulted 01/30/24 23:24 Sputum Gram Stain Pending Resulted 01/30/24 23:24 Sputum Respiratory Culture - Preliminary Resulted Labs and/or images reviewed: Labs reviewed by me, Image(s) reviewed by me Assessment/Plan Assessment/Plan Impression: -acute hypoxic respiratory failure -severe asthma exacerbation -rule out community-acquired pneumonia -ruled out pulmonary embolism -rule out DVT -rheumatoid arthritis -leukocytosis, rule out sepsis Plan: Events: Patient continues to be on high-flow nasal cannula at 30 liters/minute at 50% FiO2 saturation 97%. Clinically the patient continues to have some dyspnea, tachycardia as well as inspiratory and expiratory wheezing in upper and lower lungs. White blood cell count improving. -continue DuoNebs q.4 hours. Patient will receive another continuous treatment of albuterol -continue Solu-Medrol with increased rate at 125 mg q.8 hours -continue antihistamine -negative for influenza, COVID -continue O2 supplementation to keep saturation greater than 92%. -pulmonary consultation: Recommendations appreciated -antitussive -repeat labs in a.m. Critical care time spent with patient discussing and formulating plan of care: 40 minutes. This does not include time spent performing procedures. This medical document was created using an electronic medical record system with [employer] system. Although this document has been carefully reviewed, there may still be some phonetic and typographical errors. These areas are purely typographical due to imperfections of the software programs, and do not reflect any compromise in the patient's medical care. Plan discussed with: Patient, Other (RN) My Orders Orders - ARLYN TORRE NP Procedure Category Date Status Time Chest Xray 1 View XY 02/01/24 Resulted 09:02 Basic Metabolic Panel LAB 02/02/24 Verified 04:00 Complete Blood Count LAB 02/02/24 Verified 04:00 Date of Service: Feb 01, 2024 Billing Provider: ARLYN TORRE NP Common Visit Codes: [id number] CARE 30-74 MIN ARLYN TORRE NP Feb 01, 2024 10:37
--- NOTE | 2024-02-01 21:35 | DVHPN2 ---
Progress Note - Dictate Date Seen: Feb 01, 2024 Medical Necessity Reason Pt with a Central, PICC or Fol: No Subjective Patient seen and examined at bedside. Remains on supplemental oxygen Overnight events reviewed. vital signs Vital Sign Date Time Temp Pulse Resp B/P (MAP) Pulse Ox O2 Delivery O2 Flow Rate FiO2 02/01/24 21:00 81 18 122/50 (74) 96 02/01/24 20:00 Hi-Flow Heated NC+ 30 50 50 02/01/24 20:00 98.8 98.8 Total Intake and Output 01/31/24 01/31/24 02/01/24 15:00 23:00 07:00 Intake Total 150 ml 680 ml 1050 ml Balance 150 ml 680 ml 1050 ml medications Current Medications Medications Dose Ordered Sig/Brittnee Route Start Time Stop Time Status Last Admin Dose Admin Ceftriaxone Sodium 50 ml @ 100 mls/hr DAILY@09 IV 01/30/24 09:00 02/01/24 07:25 100 MLS/HR Azithromycin 250 ml @ 125 mls/hr DAILY@0200 IV 01/31/24 02:00 02/01/24 01:48 125 MLS/HR Acetaminophen/ Hydrocodone Bitart 1 tab Q4HP PRN PO 01/30/24 03:00 02/01/24 19:58 1 TAB Ondansetron HCl 4 mg Q4HP PRN IV 01/30/24 03:00 Docusate Sodium 100 mg BIDPRN PRN PO 01/30/24 03:00 Enoxaparin Sodium 40 mg DAILY SC 01/30/24 10:00 02/01/24 08:28 40 MG Acetaminophen 650 mg Q6HP PRN PO 01/30/24 03:00 Nitroglycerin 0.4 mg Q5MINP PRN SL 01/30/24 03:00 Morphine Sulfate 2 mg Q30M PRN IV 01/30/24 03:00 Famotidine 20 mg Q12HR IV 01/30/24 10:00 02/01/24 08:27 20 MG Budesonide 0.5 mg BID NEB 01/30/24 22:00 02/01/24 06:44 0.5 MG Lorazepam 1 mg Q8HP PRN IV 01/30/24 23:15 02/01/24 13:18 1 MG Methylprednisolone Sodium Succinate 125 mg Q8HR IV 01/31/24 14:00 02/01/24 12:39 125 MG Guaifenesin/ Codeine Phosphate 5 ml Q4HPRN PRN PO 01/31/24 08:30 02/01/24 10:06 5 ML Loratadine 10 mg DAILY PO 01/31/24 10:00 02/01/24 08:27 10 MG Albuterol 2.5 mg Q4HR NEB 01/31/24 10:00 02/01/24 17:56 2.5 MG Ipratropium [place] 0.5 mg Q4HR NEB 01/31/24 10:00 02/01/24 17:57 0.5 MG objective Gen.: Patient lying in bed in no apparent distress. On supplemental oxygen. Head: Normocephalic, atraumatic. Eyes: EOMI/PERRLA. Ears: Normal hearing. Normal anatomy. Neck/trachea: Trachea midline, supple. Nose: Normal external anatomy. Mouth: Moist mucous membranes. Chest: Decreased air entry bilaterally. No wheezing or rhonchi. Cardiovascular: Positive S1, positive S2. Regular rate and rhythm. Abdomen: Positive bowel sounds in all 4 quadrants. Soft, non-tender, non- distended. : Deferred. Rectal: Deferred. Skin: Warm, dry. Intact. Extremities: 2+ radial pulses bilaterally. No lower extremity edema. Neuro: Awake, alert, oriented x3. No gross motor or sensory deficits. Cranial nerves II through XII intact. Gait not assessed. laboratory and microbiology Laboratory Tests 02/01/24 04:52 Test 02/01/24 04:52 Range/Units Serum Glucose 126 H 74-106 mg/dL Assessment/Plan Impression: Acute hypoxic respiratory failure Asthma exacerbation Rheumatoid arthritis Leukocytosis Elevated D-dimer GGO on imaging Events: On high flow O2 at 30 LPM flow rate, 50% FiO2. O2 sat 97% Taper O2 as tolerated Continue bronchodilators. Continue IV steroids Continue antibiotics Wheezing improved. Labs and imaging reviewed. Rest of plan as noted below. Plan: Supplemental oxygen On high flow O2 at 30 LPM flow rate, 50% FiO2. Taper O2 as tolerated Pulse dose steroids Bronchodilators/Pulmicort BID. Continue antibiotics WBC trending down. Elevated D-dimer. Ruled out DVT in bilateral lower extremities Ruled out pulmonary embolism. Follow up cardiology recommendations. Monitor renal function. Monitor electrolytes. Supplement as necessary. Monitor ins and outs. DVT prophylaxis- Lovenox GI prophylaxis- Pepcid Prognosis: Poor given patient's multiple co-morbidities. Condition: Critical Rest of plan per hospitalist and other consultants. A total of 35 minutes of critical care time was spent reviewing the patient record, examining the patient, making a diagnostic and therapeutic plan, discussing this plan with the medical personnel, following up on diagnostic studies and following the patient for clinical stability excluding any and all procedures. At least 50% of this time was spent in direct, [id number] contact. Thank you, Alessandro Bentley NP, for allowing me to participate in this patient's care. Further recommendations will depend on the patient's clinical course. Please do not hesitate to contact me if you have any questions or concerns. This medical document was created using an electronic medical record system with [employer] dictation system. Although these documentations are being carefully reviewed, there may still be some phonetic and typographical changes. The errors are purely typographical, due to imperfection on the software program, and do not reflect any compromise in the patient's medical care. Plan discussed with: Other (SANDRA Puentes) Critical Care Time(min): 35 FANNIE SULLIVAN MD Feb 01, 2024 21:35
[2024-02-02] VITALS (32 sets, daily range): BP systolic 95–129; BP diastolic 48–81; PULSE 66–118; RESP 14–34; TEMP 97.8–99; O2SAT 90–98
[2024-02-02 05:36] LABS: Chloride 104 mmol/L (98-107); Potassium 5.1 mmol/L (3.5-5.1); Sodium 139 mmol/L (136-145)
[2024-02-02 05:37] LABS: Anion Gap 6 (5-15); Calcium 9.6 mg/dL (8.7-10.4); Carbon Dioxide 29 mmol/L (20-31)
[2024-02-02 05:42] LABS: BUN/Creatinine Ratio 23.1 (10.0-20.0); Blood Urea Nitrogen 15 mg/dL (9-23); Glucose 118 mg/dL (74-106)
[2024-02-02 05:44] LABS: Basophils # (auto) 0 10 ^3/uL (0-0.2); Basophils % (auto) 0.2 % (0.0-2.0); Eosinophils # (auto) 0 10 ^3/uL (0-0.8); Hematocrit 40.6 % (36.0-46.0); Hemoglobin 13.4 g/dL (12.2-16.2); Lymphocytes # (auto) 1.3 10 ^3/uL (0.4-5.4); Mean Corpuscular Hemoglobin 29.3 pg (28.0-32.0); Mean Corpuscular Volume 88.6 fL (80.0-100.0); Monocytes # (auto) 0.8 10 ^3/uL (0-1.3); Monocytes % (auto) 6.1 % (0.0-12.0); Neutrophils # (auto) 11.2 10 ^3/uL (1.6-8.6); Neutrophils % (auto) 83.7 % (37.0-80.0); Nucleated Red Blood Cells % 0.1 %; Platelet Count (auto) 287 10^3/uL (140-450); Red Blood Cells 4.58 10^6/uL (4.0-5.20); Red Cell Distribution Width 13.6 % (11.8-14.3); White Blood Cell 13.4 10^3/uL (4.4-10.8)
[2024-02-02 06:29] LABS: Large Platelets FEW; Platelet Estimate Adequate
--- NOTE | 2024-02-02 10:55 | DVHPN2 ---
Subjective Patient states that she has mild improvement with her breathing compared yesterday. Reviewed: Care Plan, H&P, Labs, Medications, Previous Orders Changes from previous H/P or p: No Changes General: Per HPI Eyes: No Pain, No Vision change, No Conjunctivae inflammation, No Eyelid inflammation, No Other, No Redness ENT: No Ear pain, No Ear discharge, No Nose pain, No Nose discharge, No Nose congestion, No Mouth pain, No Mouth swelling, No Throat pain, No Throat swelling, No Other Cardiovascular: No Chest Pain, No Palpitations, No Orthopnea, No Paroxysmal Noc. Dyspnea, No Edema, No Lt Headedness, No Other Respiratory: Cough; No Dry; Shortness of breath, SOB with excertion; No Wheezing, No Hemoptysis, No Pleuritic Pain, No Sputum; Other (SOB AT REST) Gastrointestinal: No Nausea, No Vomiting, No Abdominal Pain, No Diarrhea, No Constipation, No Melena, No Hematochezia, No Other Genitourinary: No Dysuria, No Frequency, No Incontinence, No Hematuria, No Retention, No Other Musculoskeletal: No other, No neck pain, No shoulder pain, No arm pain, No back pain, No hand pain, No leg pain, No foot pain Skin: No Rash, No Lesions, No Jaundice, No Bruising, No Other Objective Vitals Vital Signs Date Time Temp Pulse Resp B/P (MAP) Pulse Ox O2 Delivery O2 Flow Rate FiO2 02/02/24 09:50 86 28 95 02/02/24 09:50 30.0 40 02/02/24 08:00 Hi-Flow Heated NC+ 02/02/24 08:00 98.0 113/69 (84) 98.0 Intake/Output Intake and Output 02/02/24 07:00 Intake Total 1480 ml Balance 1480 ml Intake Oral 1180 ml IV Total 300 ml # Voids 4 General Appearance: Alert, Oriented X3, Cooperative, moderate distress HEENT: Atraumatic, PERRLA Lungs: Other (Inspiratory and expiratory wheezing. Patient on non-rebreather at 15 liters/minute) Cardiovascular: Normal S1, Normal S2, Other (Sinus tachycardia) Abdomen: Normal bowel sounds, Soft, No tenderness Musculoskeletal: Normal sensory function, Normal motor function Neuro: Normal speech Psych/Mental Status: Mental status NL, Mood NL Medications Current Medications Medications Dose Ordered Sig/Brittnee Route Start Time Stop Time Status Last Admin Dose Admin Ceftriaxone Sodium 50 ml @ 100 mls/hr DAILY@09 IV 01/30/24 09:00 02/02/24 08:43 100 MLS/HR Azithromycin 250 ml @ 125 mls/hr DAILY@0200 IV 01/31/24 02:00 02/02/24 01:26 125 MLS/HR Acetaminophen/ Hydrocodone Bitart 1 tab Q4HP PRN PO 01/30/24 03:00 02/02/24 06:10 1 TAB Ondansetron HCl 4 mg Q4HP PRN IV 01/30/24 03:00 Docusate Sodium 100 mg BIDPRN PRN PO 01/30/24 03:00 Enoxaparin Sodium 40 mg DAILY SC 01/30/24 10:00 02/02/24 10:48 40 MG Acetaminophen 650 mg Q6HP PRN PO 01/30/24 03:00 Nitroglycerin 0.4 mg Q5MINP PRN SL 01/30/24 03:00 Morphine Sulfate 2 mg Q30M PRN IV 01/30/24 03:00 Famotidine 20 mg Q12HR IV 01/30/24 10:00 02/02/24 10:48 20 MG Budesonide 0.5 mg BID NEB 01/30/24 22:00 02/02/24 09:49 0.5 MG Lorazepam 1 mg Q8HP PRN IV 01/30/24 23:15 02/02/24 08:43 1 MG Methylprednisolone Sodium Succinate 125 mg Q8HR IV 01/31/24 14:00 02/02/24 06:04 125 MG Guaifenesin/ Codeine Phosphate 5 ml Q4HPRN PRN PO 01/31/24 08:30 02/02/24 01:25 5 ML Loratadine 10 mg DAILY PO 01/31/24 10:00 02/02/24 10:48 10 MG Albuterol 2.5 mg Q4HR NEB 01/31/24 10:00 02/02/24 09:49 2.5 MG Ipratropium [place] 0.5 mg Q4HR NEB 01/31/24 10:00 02/02/24 09:49 0.5 MG Laboratory Results Laboratory Tests 02/02/24 05:07 Chemistry Test 02/02/24 05:07 Calcium Level 9.6 mg/dL (8.7-10.4) Urinalysis Test 01/30/24 04:20 Urine Color Light-yellow (Yellow) Urine Clarity Clear (Clear) Urine pH 6.5 (5.0-9.0) Urine Specific [place] 1.032 (1.001-1.035) Urine Protein Negative (Negative) Urine Ketones 1+ (Negative) H Urine Blood Negative /uL (Negative) Urine Nitrite Negative (Negative) Urine Bilirubin Negative (Negative) Urine Urobilinogen Normal mg/dL (Negative) Urine Leukocyte Esterase Negative /uL (Negative) Urine RBC None seen /hpf (0 - 4) Urine WBC None seen /hpf (0 - 5) Urine Squamous Epithelial Cells Few /hpf (<5) Urine Bacteria None seen /hpf (None Seen) Urine Glucose Normal mg/dL (Normal) Microbiology Microbiology Date/Time Source Procedure Growth Status 01/31/24 04:48 Blood Blood Culture - Preliminary NO GROWTH AFTER 48 HOURS OF INCUBATION. Resulted 01/30/24 23:24 Sputum Gram Stain - Final Resulted 01/30/24 23:24 Sputum Respiratory Culture - Preliminary Resulted Labs and/or images reviewed: Labs reviewed by me, Image(s) reviewed by me Assessment/Plan Assessment/Plan Impression: -acute hypoxic respiratory failure -severe asthma exacerbation -rule out community-acquired pneumonia -ruled out pulmonary embolism -rule out DVT -rheumatoid arthritis -leukocytosis, rule out sepsis Plan: Events: Patient continues to be on high-flow nasal cannula at 30 liters/minute at 40% FiO2 saturation 97%. Wheezing improved, but still appreciated. -continue DuoNebs q.4 hours. Patient will receive another continuous treatment of albuterol -continue Solu-Medrol with increased rate at 125 mg q.8 hours -continue antihistamine -negative for influenza, COVID -continue O2 supplementation to keep saturation greater than 92%. -pulmonary consultation: Recommendations appreciated -antitussive -repeat labs, chest x-ray in a.m. Critical care time spent with patient discussing and formulating plan of care: 40 minutes. This does not include time spent performing procedures. This medical document was created using an electronic medical record system with [employer] system. Although this document has been carefully reviewed, there may still be some phonetic and typographical errors. These areas are purely typographical due to imperfections of the software programs, and do not reflect any compromise in the patient's medical care. Plan discussed with: Patient, Other (RN) My Orders Orders - ARLYN TORRE NP Procedure Category Date Status Time Basic Metabolic Panel LAB 02/03/24 Verified 04:00 Chest Portable XY 02/03/24 Logged 04:00 Albuterol Medneb PHA 02/02/24 Logged (Ventolin Medneb) 11:00 Date of Service: Feb 02, 2024 Billing Provider: ARLYN TORRE NP Common Visit Codes: [id number] CARE 30-74 MIN ARLYN TORRE NP Feb 02, 2024 10:55
[2024-02-02] MEDS: ALBUTEROL SULF 2.5 MG/0.5ML(0.5%) NEB SOLN NEB ONE (11:58)
--- NOTE | 2024-02-02 22:22 | DVHPN2 ---
Progress Note - Dictate Date Seen: Feb 02, 2024 Medical Necessity Reason Pt with a Central, PICC or Fol: No Subjective Patient seen and examined at bedside. Remains on supplemental oxygen Overnight events reviewed. vital signs Vital Sign Date Time Temp Pulse Resp B/P (MAP) Pulse Ox O2 Delivery O2 Flow Rate FiO2 02/02/24 22:00 94 20 104/57 (73) 91 02/02/24 21:53 35.0 35 02/02/24 20:00 Hi-Flow Heated NC+ 02/02/24 19:49 99.0 99.0 Total Intake and Output 02/01/24 02/01/24 02/02/24 15:00 23:00 07:00 Intake Total 150 ml 480 ml 850 ml Balance 150 ml 480 ml 850 ml medications Current Medications Medications Dose Ordered Sig/Brittnee Route Start Time Stop Time Status Last Admin Dose Admin Ceftriaxone Sodium 50 ml @ 100 mls/hr DAILY@09 IV 01/30/24 09:00 02/02/24 08:43 100 MLS/HR Azithromycin 250 ml @ 125 mls/hr DAILY@0200 IV 01/31/24 02:00 02/02/24 01:26 125 MLS/HR Acetaminophen/ Hydrocodone Bitart 1 tab Q4HP PRN PO 01/30/24 03:00 02/02/24 06:10 1 TAB Ondansetron HCl 4 mg Q4HP PRN IV 01/30/24 03:00 Docusate Sodium 100 mg BIDPRN PRN PO 01/30/24 03:00 Enoxaparin Sodium 40 mg DAILY SC 01/30/24 10:00 02/02/24 10:48 40 MG Acetaminophen 650 mg Q6HP PRN PO 01/30/24 03:00 Nitroglycerin 0.4 mg Q5MINP PRN SL 01/30/24 03:00 Morphine Sulfate 2 mg Q30M PRN IV 01/30/24 03:00 Famotidine 20 mg Q12HR IV 01/30/24 10:00 02/02/24 21:01 20 MG Budesonide 0.5 mg BID NEB 01/30/24 22:00 02/02/24 18:10 0.5 MG Lorazepam 1 mg Q8HP PRN IV 01/30/24 23:15 02/02/24 19:55 1 MG Methylprednisolone Sodium Succinate 125 mg Q8HR IV 01/31/24 14:00 02/02/24 21:01 125 MG Guaifenesin/ Codeine Phosphate 5 ml Q4HPRN PRN PO 01/31/24 08:30 02/02/24 21:01 5 ML Loratadine 10 mg DAILY PO 01/31/24 10:00 02/02/24 10:48 10 MG Albuterol 2.5 mg Q4HR NEB 01/31/24 10:00 02/02/24 21:53 2.5 MG Ipratropium [place] 0.5 mg Q4HR NEB 01/31/24 10:00 02/02/24 21:53 0.5 MG objective Gen.: Patient lying in bed in no apparent distress. On supplemental oxygen. Head: Normocephalic, atraumatic. Eyes: EOMI/PERRLA. Ears: Normal hearing. Normal anatomy. Neck/trachea: Trachea midline, supple. Nose: Normal external anatomy. Mouth: Moist mucous membranes. Chest: Decreased air entry bilaterally. No wheezing or rhonchi. Cardiovascular: Positive S1, positive S2. Regular rate and rhythm. Abdomen: Positive bowel sounds in all 4 quadrants. Soft, non-tender, non- distended. : Deferred. Rectal: Deferred. Skin: Warm, dry. Intact. Extremities: 2+ radial pulses bilaterally. No lower extremity edema. Neuro: Awake, alert, oriented x3. No gross motor or sensory deficits. Cranial nerves II through XII intact. Gait not assessed. laboratory and microbiology Laboratory Tests 02/02/24 05:07 Test 02/02/24 05:07 Range/Units Serum Glucose 118 H 74-106 mg/dL Assessment/Plan Impression: Acute hypoxic respiratory failure Asthma exacerbation Rheumatoid arthritis Leukocytosis Elevated D-dimer GGO on imaging Events: On high-flow O2 at 30 LPM flow rate, 35% FiO2. Taper O2 as tolerated Improving O2 requirements. Continue bronchodilators. Continue IV steroids Continue antibiotics Antitussive for cough. Continues to wheeze. Labs and imaging reviewed. Rest of plan as noted below. Plan: Supplemental oxygen On high flow O2 at 30 LPM flow rate, 35% FiO2. Taper O2 as tolerated Pulse dose steroids Bronchodilators/Pulmicort BID. Continue antibiotics WBC trending down. Elevated D-dimer. Ruled out DVT in bilateral lower extremities Ruled out pulmonary embolism. Follow up cardiology recommendations. Monitor renal function. Monitor electrolytes. Supplement as necessary. Monitor ins and outs. DVT prophylaxis- Lovenox GI prophylaxis- Pepcid Prognosis: Poor given patient's multiple co-morbidities. Condition: Critical Rest of plan per hospitalist and other consultants. A total of 35 minutes of critical care time was spent reviewing the patient record, examining the patient, making a diagnostic and therapeutic plan, discussing this plan with the medical personnel, following up on diagnostic studies and following the patient for clinical stability excluding any and all procedures. At least 50% of this time was spent in direct, [id number] contact. Thank you, Alessandro Bentley NP, for allowing me to participate in this patient's care. Further recommendations will depend on the patient's clinical course. Please do not hesitate to contact me if you have any questions or concerns. This medical document was created using an electronic medical record system with [employer] dictation system. Although these documentations are being carefully reviewed, there may still be some phonetic and typographical changes. The errors are purely typographical, due to imperfection on the software program, and do not reflect any compromise in the patient's medical care. Plan discussed with: Other (SANDRA Small) Critical Care Time(min): 35 FANNIE SULLIVAN MD Feb 02, 2024 22:22
[2024-02-03] VITALS (36 sets, daily range): BP systolic 93–126; BP diastolic 51–126; PULSE 60–114; RESP 13–38; TEMP 97.6–99.3; O2SAT 62–96
--- NOTE | 2024-02-03 05:02 | DVH ---
CHEST RADIOGRAPH Indication: asthma exacerbation Technique: Single frontal view of the chest was obtained Comparison: XY CHEST XRAY 1 VIEW on DOS: 02/01/24 FINDINGS: Lines and Tubes: None Lungs: There is resolution of airspace disease at the right lung base since prior study. No focal con solidation. Pleura: No effusion. No pneumothorax. Cardiomediastinal contours: Unremarkable Bones: No acute osseous abnormality. IMPRESSION: 1. No acute cardiopulmonary disease.
[2024-02-03 05:57] LABS: Anion Gap 7 (5-15); Carbon Dioxide 27 mmol/L (20-31); Chloride 103 mmol/L (98-107); Potassium 4.2 mmol/L (3.5-5.1); Sodium 137 mmol/L (136-145)
[2024-02-03 05:59] LABS: Calcium 9.1 mg/dL (8.7-10.4)
[2024-02-03 06:03] LABS: Glucose 143 mg/dL (74-106)
[2024-02-03 06:04] LABS: BUN/Creatinine Ratio 20.8 (10.0-20.0); Blood Urea Nitrogen 11 mg/dL (9-23)
--- NOTE | 2024-02-03 09:27 | DVHPN2 ---
Subjective Patient verbalizing that she feels better today. Denies any worsening dyspnea when getting into the chair. Reviewed: Care Plan, H&P, Labs, Medications, Previous Orders Changes from previous H/P or p: No Changes General: Per HPI Eyes: No Pain, No Vision change, No Conjunctivae inflammation, No Eyelid inflammation, No Other, No Redness ENT: No Ear pain, No Ear discharge, No Nose pain, No Nose discharge, No Nose congestion, No Mouth pain, No Mouth swelling, No Throat pain, No Throat swelling, No Other Cardiovascular: No Chest Pain, No Palpitations, No Orthopnea, No Paroxysmal Noc. Dyspnea, No Edema, No Lt Headedness, No Other Respiratory: Cough; No Dry; Shortness of breath, SOB with excertion; No Wheezing, No Hemoptysis, No Pleuritic Pain, No Sputum; Other (SOB AT REST) Gastrointestinal: No Nausea, No Vomiting, No Abdominal Pain, No Diarrhea, No Constipation, No Melena, No Hematochezia, No Other Genitourinary: No Dysuria, No Frequency, No Incontinence, No Hematuria, No Retention, No Other Musculoskeletal: No other, No neck pain, No shoulder pain, No arm pain, No back pain, No hand pain, No leg pain, No foot pain Skin: No Rash, No Lesions, No Jaundice, No Bruising, No Other Objective Vitals Vital Signs Date Time Temp Pulse Resp B/P (MAP) Pulse Ox O2 Delivery O2 Flow Rate FiO2 02/03/24 08:00 97.6 89 23 112/77 (89) 88 97.6 02/03/24 06:04 35.0 35 02/03/24 05:55 Hi-Flow Heated NC+ Intake/Output Intake and Output 02/03/24 07:00 Intake Total 1320 ml Output Total 1650 ml Balance -330 ml Intake Oral 1020 ml IV Total 300 ml Output Urine Total 1650 ml General Appearance: Alert, Oriented X3, Cooperative, mild distress HEENT: Atraumatic, PERRLA Lungs: Other (Inspiratory and expiratory wheezing. Patient on non-rebreather at 15 liters/minute) Cardiovascular: Normal S1, Normal S2, Other (Sinus tachycardia) Abdomen: Normal bowel sounds, Soft, No tenderness Musculoskeletal: Normal sensory function, Normal motor function Neuro: Normal speech Psych/Mental Status: Mental status NL, Mood NL Medications Current Medications Medications Dose Ordered Sig/Rbittnee Route Start Time Stop Time Status Last Admin Dose Admin Ceftriaxone Sodium 50 ml @ 100 mls/hr DAILY@09 IV 01/30/24 09:00 02/02/24 08:43 100 MLS/HR Azithromycin 250 ml @ 125 mls/hr DAILY@0200 IV 01/31/24 02:00 02/03/24 01:04 125 MLS/HR Acetaminophen/ Hydrocodone Bitart 1 tab Q4HP PRN PO 01/30/24 03:00 02/03/24 01:16 1 TAB Ondansetron HCl 4 mg Q4HP PRN IV 01/30/24 03:00 Docusate Sodium 100 mg BIDPRN PRN PO 01/30/24 03:00 Enoxaparin Sodium 40 mg DAILY SC 01/30/24 10:00 02/02/24 10:48 40 MG Acetaminophen 650 mg Q6HP PRN PO 01/30/24 03:00 Nitroglycerin 0.4 mg Q5MINP PRN SL 01/30/24 03:00 Morphine Sulfate 2 mg Q30M PRN IV 01/30/24 03:00 Famotidine 20 mg Q12HR IV 01/30/24 10:00 02/02/24 21:01 20 MG Budesonide 0.5 mg BID NEB 01/30/24 22:00 02/02/24 18:10 0.5 MG Lorazepam 1 mg Q8HP PRN IV 01/30/24 23:15 02/03/24 04:51 1 MG Guaifenesin/ Codeine Phosphate 5 ml Q4HPRN PRN PO 01/31/24 08:30 02/03/24 01:01 5 ML Loratadine 10 mg DAILY PO 01/31/24 10:00 02/02/24 10:48 10 MG Albuterol 2.5 mg Q4HR NEB 01/31/24 10:00 02/03/24 06:02 2.5 MG Ipratropium [place] 0.5 mg Q4HR NEB 01/31/24 10:00 02/03/24 06:02 0.5 MG Methylprednisolone Sodium Succinate 80 mg Q8HR IV 02/03/24 14:00 UNV Laboratory Results Laboratory Tests 02/02/24 05:07 02/03/24 04:03 Chemistry Test 02/03/24 04:03 Calcium Level 9.1 mg/dL (8.7-10.4) Urinalysis Test 01/30/24 04:20 Urine Color Light-yellow (Yellow) Urine Clarity Clear (Clear) Urine pH 6.5 (5.0-9.0) Urine Specific [place] 1.032 (1.001-1.035) Urine Protein Negative (Negative) Urine Ketones 1+ (Negative) H Urine Blood Negative /uL (Negative) Urine Nitrite Negative (Negative) Urine Bilirubin Negative (Negative) Urine Urobilinogen Normal mg/dL (Negative) Urine Leukocyte Esterase Negative /uL (Negative) Urine RBC None seen /hpf (0 - 4) Urine WBC None seen /hpf (0 - 5) Urine Squamous Epithelial Cells Few /hpf (<5) Urine Bacteria None seen /hpf (None Seen) Urine Glucose Normal mg/dL (Normal) Microbiology Microbiology Date/Time Source Procedure Growth Status 01/31/24 04:48 Blood Blood Culture - Preliminary NO GROWTH AFTER 72 HOURS OF INCUBATION. Resulted 01/30/24 23:24 Sputum Gram Stain - Final Resulted 01/30/24 23:24 Sputum Respiratory Culture - Preliminary Resulted Labs and/or images reviewed: Labs reviewed by me, Image(s) reviewed by me Assessment/Plan Assessment/Plan Impression: -acute hypoxic respiratory failure -severe asthma exacerbation -rule out community-acquired pneumonia -ruled out pulmonary embolism -rule out DVT -rheumatoid arthritis -leukocytosis, rule out sepsis Plan: Events: On high-flow at 35% FiO2. Wheezing improved. Patient was assessed sitting in the chair. Subjectively she states that she was feeling better. Titration of Solu-Medrol today. -continue DuoNebs q.4 hours. Patient will receive another continuous treatment of albuterol -Solu-Medrol 80 mg 3 times a day -continue antihistamine -negative for influenza, COVID -continue O2 supplementation to keep saturation greater than 92%. -pulmonary consultation: Recommendations appreciated -antitussive -repeat labs, chest x-ray in a.m. Critical care time spent with patient discussing and formulating plan of care: 40 minutes. This does not include time spent performing procedures. This medical document was created using an electronic medical record system with [email or web address] system. Although this document has been carefully reviewed, there may still be some phonetic and typographical errors. These areas are purely typographical due to imperfections of the software programs, and do not reflect any compromise in the patient's medical care. Plan discussed with: Patient, Other (RN) My Orders Orders - ARLYN TORRE NP Procedure Category Date Status Time Chest Portable XY 02/03/24 Resulted 04:00 Respiratory Culture MANUEL 02/02/24 In Process W/ Gs 12:57 Regular Diet DIET 02/02/24 Transmitted Lunch Methylprednisolone PHA 02/03/24 Logged Sod Succ (Solu Medrol 14:00 Date of Service: Feb 03, 2024 Billing Provider: ARLYN TORRE NP Common Visit Codes: [id number] CARE 30-74 MIN ARLYN TORRE NP Feb 03, 2024 09:27
[2024-02-03] MEDS: methylPREDNISolone SOD SUCC 125 MG/2 ML VL IV SCH (15:08)
--- NOTE | 2024-02-03 21:13 | DVHPN2 ---
Progress Note - Dictate Date Seen: Feb 03, 2024 Medical Necessity Reason Pt with a Central, PICC or Fol: No Subjective Patient seen and examined at bedside. Remains on supplemental oxygen Overnight events reviewed. vital signs Vital Sign Date Time Temp Pulse Resp B/P (MAP) Pulse Ox O2 Delivery O2 Flow Rate FiO2 02/03/24 20:00 88 31 123/65 (84) 93 02/03/24 20:00 Hi-Flow Heated NC+ 35 35 35 02/03/24 19:00 98.4 98.4 Total Intake and Output 02/02/24 02/02/24 02/03/24 15:00 23:00 07:00 Intake Total 830 ml 490 ml Output Total 350 ml 500 ml 800 ml Balance 480 ml -500 ml -310 ml medications Current Medications Medications Dose Ordered Sig/Brittnee Route Start Time Stop Time Status Last Admin Dose Admin Ceftriaxone Sodium 50 ml @ 100 mls/hr DAILY@09 IV 01/30/24 09:00 02/03/24 09:27 100 MLS/HR Azithromycin 250 ml @ 125 mls/hr DAILY@0200 IV 01/31/24 02:00 02/03/24 01:04 125 MLS/HR Acetaminophen/ Hydrocodone Bitart 1 tab Q4HP PRN PO 01/30/24 03:00 02/03/24 01:16 1 TAB Ondansetron HCl 4 mg Q4HP PRN IV 01/30/24 03:00 Docusate Sodium 100 mg BIDPRN PRN PO 01/30/24 03:00 Enoxaparin Sodium 40 mg DAILY SC 01/30/24 10:00 02/03/24 09:28 40 MG Acetaminophen 650 mg Q6HP PRN PO 01/30/24 03:00 Nitroglycerin 0.4 mg Q5MINP PRN SL 01/30/24 03:00 Morphine Sulfate 2 mg Q30M PRN IV 01/30/24 03:00 Famotidine 20 mg Q12HR IV 01/30/24 10:00 02/03/24 09:27 20 MG Budesonide 0.5 mg BID NEB 01/30/24 22:00 02/02/24 18:10 0.5 MG Lorazepam 1 mg Q8HP PRN IV 01/30/24 23:15 02/03/24 04:51 1 MG Guaifenesin/ Codeine Phosphate 5 ml Q4HPRN PRN PO 01/31/24 08:30 02/03/24 18:17 5 ML Loratadine 10 mg DAILY PO 01/31/24 10:00 02/03/24 09:27 10 MG Albuterol 2.5 mg Q4HR NEB 01/31/24 10:00 02/03/24 18:11 2.5 MG Ipratropium [place] 0.5 mg Q4HR NEB 01/31/24 10:00 02/03/24 18:10 0.5 MG Methylprednisolone Sodium Succinate 80 mg Q8HR IV 02/03/24 14:00 02/03/24 15:08 80 MG objective Gen.: Patient lying in bed in no apparent distress. On supplemental oxygen. Head: Normocephalic, atraumatic. Eyes: EOMI/PERRLA. Ears: Normal hearing. Normal anatomy. Neck/trachea: Trachea midline, supple. Nose: Normal external anatomy. Mouth: Moist mucous membranes. Chest: Decreased air entry bilaterally. No wheezing or rhonchi. Cardiovascular: Positive S1, positive S2. Regular rate and rhythm. Abdomen: Positive bowel sounds in all 4 quadrants. Soft, non-tender, non- distended. : Deferred. Rectal: Deferred. Skin: Warm, dry. Intact. Extremities: 2+ radial pulses bilaterally. No lower extremity edema. Neuro: Awake, alert, oriented x3. No gross motor or sensory deficits. Cranial nerves II through XII intact. Gait not assessed. laboratory and microbiology Laboratory Tests 02/03/24 04:03 02/02/24 05:07 Test 02/03/24 04:03 Range/Units Serum Glucose 143 H 74-106 mg/dL Assessment/Plan Impression: Acute hypoxic respiratory failure Asthma exacerbation Rheumatoid arthritis Leukocytosis Elevated D-dimer GGO on imaging Events: On high-flow O2 at 35 LPM flow rate, 35% FiO2. Taper O2 as tolerated Transition to low flow oxygen. Continue bronchodilators. Continue IV steroids Continue antibiotics Antitussive for cough. Incentive spirometry Labs and imaging reviewed. Rest of plan as noted below. Plan: Supplemental oxygen On high flow O2 at 35 LPM flow rate, 35% FiO2. Taper O2 as tolerated Pulse dose steroids Bronchodilators/Pulmicort BID. Continue antibiotics WBC trending down. Elevated D-dimer. Ruled out DVT in bilateral lower extremities Ruled out pulmonary embolism. Follow up cardiology recommendations. Monitor renal function. Monitor electrolytes. Supplement as necessary. Monitor ins and outs. DVT prophylaxis- Lovenox GI prophylaxis- Pepcid Prognosis: Poor given patient's multiple co-morbidities. Condition: Critical Rest of plan per hospitalist and other consultants. A total of 35 minutes of critical care time was spent reviewing the patient record, examining the patient, making a diagnostic and therapeutic plan, discussing this plan with the medical personnel, following up on diagnostic studies and following the patient for clinical stability excluding any and all procedures. At least 50% of this time was spent in direct, [id number] contact. Thank you, Alessandro Bentley NP, for allowing me to participate in this patient's care. Further recommendations will depend on the patient's clinical course. Please do not hesitate to contact me if you have any questions or concerns. This medical document was created using an electronic medical record system with [employer] dictation system. Although these documentations are being carefully reviewed, there may still be some phonetic and typographical changes. The errors are purely typographical, due to imperfection on the software program, and do not reflect any compromise in the patient's medical care. Dietary Evaluation Review Comments: Continue current plan of care Expected Outcomes/Goals: F/U in 3-5 days Plan discussed with: Other (SANDRA Gasca) Critical Care Time(min): 35 FANNIE SULLIVAN MD Feb 03, 2024 21:13
[2024-02-04] VITALS (58 sets, daily range): BP systolic 89–113; BP diastolic 50–75; PULSE 53–96; RESP 10–29; TEMP 97.5–98.4; O2SAT 62–100
[2024-02-04 05:07] LABS: Basophils # (auto) 0 10 ^3/uL (0-0.2); Basophils % (auto) 0.2 % (0.0-2.0); Eosinophils # (auto) 0 10 ^3/uL (0-0.8); Eosinophils % (auto) 0.1 % (0.0-7.0); Hematocrit 37.6 % (36.0-46.0); Hemoglobin 12.8 g/dL (12.2-16.2); Lymphocytes # (auto) 1.5 10 ^3/uL (0.4-5.4); Lymphocytes % (auto) 14.3 % (10.0-50.0); Mean Corpuscular Hemoglobin 29.8 pg (28.0-32.0); Mean Corpuscular Volume 87.7 fL (80.0-100.0); Monocytes # (auto) 0.8 10 ^3/uL (0-1.3); Monocytes % (auto) 7.1 % (0.0-12.0); Neutrophils # (auto) 8.4 10 ^3/uL (1.6-8.6); Neutrophils % (auto) 78.3 % (37.0-80.0); Platelet Count (auto) 269 10^3/uL (140-450); Red Blood Cells 4.29 10^6/uL (4.0-5.20); Red Cell Distribution Width 13.6 % (11.8-14.3); White Blood Cell 10.8 10^3/uL (4.4-10.8)
[2024-02-04 05:23] LABS: Anion Gap 7 (5-15); Carbon Dioxide 27 mmol/L (20-31); Chloride 104 mmol/L (98-107); Potassium 4.1 mmol/L (3.5-5.1); Sodium 138 mmol/L (136-145)
[2024-02-04 05:24] LABS: Calcium 8.9 mg/dL (8.7-10.4)
[2024-02-04 05:29] LABS: Blood Urea Nitrogen 11 mg/dL (9-23); Glucose 151 mg/dL (74-106)
--- NOTE | 2024-02-04 09:47 | DVHPN2 ---
Subjective Patient verbalizing that she feels better today. Denies any worsening dyspnea when getting into the chair. Reviewed: Care Plan, H&P, Labs, Medications, Previous Orders Changes from previous H/P or p: Changes General: Per HPI Eyes: No Pain, No Vision change, No Conjunctivae inflammation, No Eyelid inflammation, No Other, No Redness ENT: No Ear pain, No Ear discharge, No Nose pain, No Nose discharge, No Nose congestion, No Mouth pain, No Mouth swelling, No Throat pain, No Throat swelling, No Other Cardiovascular: No Chest Pain, No Palpitations, No Orthopnea, No Paroxysmal Noc. Dyspnea, No Edema, No Lt Headedness, No Other Respiratory: Cough; No Dry; SOB with excertion; No Wheezing, No Hemoptysis, No Pleuritic Pain, No Sputum Gastrointestinal: No Nausea, No Vomiting, No Abdominal Pain, No Diarrhea, No Constipation, No Melena, No Hematochezia, No Other Genitourinary: No Dysuria, No Frequency, No Incontinence, No Hematuria, No Retention, No Other Musculoskeletal: No other, No neck pain, No shoulder pain, No arm pain, No back pain, No hand pain, No leg pain, No foot pain Skin: No Rash, No Lesions, No Jaundice, No Bruising, No Other Objective Vitals Vital Signs Date Time Temp Pulse Resp B/P (MAP) Pulse Ox O2 Delivery O2 Flow Rate FiO2 02/04/24 09:28 83 20 95 35.0 35 02/04/24 08:00 112/66 (81) 02/04/24 06:00 Hi-Flow Heated NC+ 02/04/24 04:00 97.6 97.6 Intake/Output Intake and Output 02/04/24 07:00 Intake Total 2170 ml Output Total 650 ml Balance 1520 ml Intake Oral 1870 ml IV Total 300 ml Output Urine Total 650 ml # Voids 5 General Appearance: Alert, Oriented X3, Cooperative, mild distress HEENT: Atraumatic, PERRLA Lungs: Other (Mild wheezing to posterior base) Cardiovascular: Normal S1, Normal S2, Other (Sinus tachycardia) Abdomen: Normal bowel sounds, Soft, No tenderness Musculoskeletal: Normal sensory function, Normal motor function Neuro: Normal speech Psych/Mental Status: Mental status NL, Mood NL Medications Current Medications Medications Dose Ordered Sig/Brittnee Route Start Time Stop Time Status Last Admin Dose Admin Ceftriaxone Sodium 50 ml @ 100 mls/hr DAILY@09 IV 01/30/24 09:00 02/04/24 09:13 100 MLS/HR Azithromycin 250 ml @ 125 mls/hr DAILY@0200 IV 01/31/24 02:00 02/04/24 03:35 125 MLS/HR Acetaminophen/ Hydrocodone Bitart 1 tab Q4HP PRN PO 01/30/24 03:00 02/03/24 01:16 1 TAB Ondansetron HCl 4 mg Q4HP PRN IV 01/30/24 03:00 Docusate Sodium 100 mg BIDPRN PRN PO 01/30/24 03:00 Enoxaparin Sodium 40 mg DAILY SC 01/30/24 10:00 02/04/24 09:13 40 MG Acetaminophen 650 mg Q6HP PRN PO 01/30/24 03:00 Nitroglycerin 0.4 mg Q5MINP PRN SL 01/30/24 03:00 Morphine Sulfate 2 mg Q30M PRN IV 01/30/24 03:00 Famotidine 20 mg Q12HR IV 01/30/24 10:00 02/04/24 09:14 20 MG Budesonide 0.5 mg BID NEB 01/30/24 22:00 02/04/24 06:18 0.5 MG Lorazepam 1 mg Q8HP PRN IV 01/30/24 23:15 02/04/24 09:14 1 MG Guaifenesin/ Codeine Phosphate 5 ml Q4HPRN PRN PO 01/31/24 08:30 02/04/24 09:14 5 ML Loratadine 10 mg DAILY PO 01/31/24 10:00 02/04/24 09:14 10 MG Albuterol 2.5 mg Q4HR NEB 01/31/24 10:00 02/04/24 09:28 2.5 MG Ipratropium [place] 0.5 mg Q4HR NEB 01/31/24 10:00 02/04/24 09:28 0.5 MG Methylprednisolone Sodium Succinate 80 mg Q8HR IV 02/03/24 14:00 02/04/24 06:49 80 MG Laboratory Results Laboratory Tests 02/04/24 04:43 Chemistry Test 02/04/24 04:43 Calcium Level 8.9 mg/dL (8.7-10.4) Urinalysis Test 01/30/24 04:20 Urine Color Light-yellow (Yellow) Urine Clarity Clear (Clear) Urine pH 6.5 (5.0-9.0) Urine Specific [place] 1.032 (1.001-1.035) Urine Protein Negative (Negative) Urine Ketones 1+ (Negative) H Urine Blood Negative /uL (Negative) Urine Nitrite Negative (Negative) Urine Bilirubin Negative (Negative) Urine Urobilinogen Normal mg/dL (Negative) Urine Leukocyte Esterase Negative /uL (Negative) Urine RBC None seen /hpf (0 - 4) Urine WBC None seen /hpf (0 - 5) Urine Squamous Epithelial Cells Few /hpf (<5) Urine Bacteria None seen /hpf (None Seen) Urine Glucose Normal mg/dL (Normal) Microbiology Microbiology Date/Time Source Procedure Growth Status 02/02/24 12:55 Sputum Gram Stain - Final Resulted 02/02/24 12:55 Sputum Respiratory Culture - Preliminary Resulted 01/31/24 04:48 Blood Blood Culture - Preliminary NO GROWTH AFTER 72 HOURS OF INCUBATION. Resulted Labs and/or images reviewed: Labs reviewed by me, Image(s) reviewed by me Assessment/Plan Assessment/Plan Impression: -acute hypoxic respiratory failure -severe asthma exacerbation -rule out community-acquired pneumonia -ruled out pulmonary embolism -rule out DVT -rheumatoid arthritis -leukocytosis, rule out sepsis Plan: Events: Mild wheezing noted now. Significant improvement with respiratory status. Weaned off of high-flow nasal cannula to nasal cannula. Deescalate antibiotic therapy. Continue to wean steroids. -continue DuoNebs q.4 hours. Patient will receive another continuous treatment of albuterol -Solu-Medrol 80 mg b.i.d. -continue antihistamine -negative for influenza, COVID -continue O2 supplementation to keep saturation greater than 92%. -pulmonary consultation: Recommendations appreciated -antitussive -transfer to Medical/Surgical unit Total time spent with patient discussing and formulating plan of care: 35 minutes. This medical document was created using an electronic medical record system with [employer] dictation system. Although this document has been carefully reviewed, there may still be some phonetic and typographical errors. These areas are purely typographical due to imperfections of the software programs, and do not reflect any compromise in the patient's medical care. Plan discussed with: Patient, Other (RN) My Orders Orders - ARLYN TORRE NP Procedure Category Date Status Time Methylprednisolone PHA 02/04/24 Verified Sod Succ (Solu Medrol 22:00 Transfer Orders XFER 02/04/24 Verified 09:43 Oxygen By Nasal RT 02/04/24 Verified Cannula 09:43 Date of Service: Feb 04, 2024 Billing Provider: ARLYN TORRE NP Common Visit Codes: [id number] INP/OBS CARE(HIGH) ARLYN TORRE NP Feb 04, 2024 09:47
--- NOTE | 2024-02-04 14:05 | MEDREC ---
[facility] ASP Intervention Section I [facility] ASP Intervention: Deescalate AB based on CS (SPUTUM CULTURE RESULTS: MODERATE GROWTH: NORMAL OROPHARYNGEAL DAVEY INCLUDING YEAST - PLEASE CONSIDER D/C ANTIBIOTIC(S) IN ABSENCE OF BACTERIAL INFECTION) ANABELL MOSQUERA PHARMACIST Feb 04, 2024 14:05
--- NOTE | 2024-02-04 21:18 | DVHPN2 ---
Progress Note - Dictate Date Seen: Feb 04, 2024 Medical Necessity Reason Pt with a Central, PICC or Fol: No Subjective Patient seen and examined at bedside. Remains on supplemental oxygen Overnight events reviewed. vital signs Vital Sign Date Time Temp Pulse Resp B/P (MAP) Pulse Ox O2 Delivery O2 Flow Rate FiO2 02/04/24 20:00 80 19 94 Nasal Cannula* 3 32 02/04/24 17:11 97.5 108/74 (85) 97.5 Total Intake and Output 02/03/24 02/03/24 02/04/24 15:00 23:00 07:00 Intake Total 1130 ml 590 ml 450 ml Output Total 650 ml Balance 1130 ml -60 ml 450 ml medications Current Medications Medications Dose Ordered Sig/Brittnee Route Start Time Stop Time Status Last Admin Dose Admin Ceftriaxone Sodium 50 ml @ 100 mls/hr DAILY@09 IV 01/30/24 09:00 02/04/24 09:13 100 MLS/HR Acetaminophen/ Hydrocodone Bitart 1 tab Q4HP PRN PO 01/30/24 03:00 02/04/24 16:15 1 TAB Ondansetron HCl 4 mg Q4HP PRN IV 01/30/24 03:00 Docusate Sodium 100 mg BIDPRN PRN PO 01/30/24 03:00 Enoxaparin Sodium 40 mg DAILY SC 01/30/24 10:00 02/04/24 09:13 40 MG Acetaminophen 650 mg Q6HP PRN PO 01/30/24 03:00 Nitroglycerin 0.4 mg Q5MINP PRN SL 01/30/24 03:00 Morphine Sulfate 2 mg Q30M PRN IV 01/30/24 03:00 Famotidine 20 mg Q12HR IV 01/30/24 10:00 02/04/24 09:14 20 MG Budesonide 0.5 mg BID NEB 01/30/24 22:00 02/04/24 18:56 0.5 MG Lorazepam 1 mg Q8HP PRN IV 01/30/24 23:15 02/04/24 09:14 1 MG Guaifenesin/ Codeine Phosphate 5 ml Q4HPRN PRN PO 01/31/24 08:30 02/04/24 13:22 5 ML Loratadine 10 mg DAILY PO 01/31/24 10:00 02/04/24 09:14 10 MG Albuterol 2.5 mg Q4HR NEB 01/31/24 10:00 02/04/24 18:56 2.5 MG Ipratropium [place] 0.5 mg Q4HR NEB 01/31/24 10:00 02/04/24 18:56 0.5 MG Methylprednisolone Sodium Succinate 80 mg BID IV 02/04/24 22:00 objective Gen.: Patient lying in bed in no apparent distress. On supplemental oxygen. Head: Normocephalic, atraumatic. Eyes: EOMI/PERRLA. Ears: Normal hearing. Normal anatomy. Neck/trachea: Trachea midline, supple. Nose: Normal external anatomy. Mouth: Moist mucous membranes. Chest: Decreased air entry bilaterally. No wheezing or rhonchi. Cardiovascular: Positive S1, positive S2. Regular rate and rhythm. Abdomen: Positive bowel sounds in all 4 quadrants. Soft, non-tender, non- distended. : Deferred. Rectal: Deferred. Skin: Warm, dry. Intact. Extremities: 2+ radial pulses bilaterally. No lower extremity edema. Neuro: Awake, alert, oriented x3. No gross motor or sensory deficits. Cranial nerves II through XII intact. Gait not assessed. laboratory and microbiology Laboratory Tests 02/04/24 04:43 Test 02/04/24 04:43 Range/Units Serum Glucose 151 H 74-106 mg/dL Assessment/Plan Impression: Acute hypoxic respiratory failure Asthma exacerbation Rheumatoid arthritis Leukocytosis Elevated D-dimer GGO on imaging Events: Remains on supplemental oxygen, 4 LPM Oxymizer Improved O2 requirements - transitioned from HFO2 to low flow Taper O2 as tolerated Continue bronchodilators. Continue IV steroids Continue antibiotics Antitussive for cough. Incentive spirometry Labs and imaging reviewed. Rest of plan as noted below. Plan: Supplemental oxygen - 4 LPM Oxymizer Transitioned from HFO2 to low flow Titrate to keep O2 sats above 92%. Pulse dose steroids Bronchodilators/Pulmicort BID. Continue antibiotics WBC trending down. Elevated D-dimer. Ruled out DVT in bilateral lower extremities Ruled out pulmonary embolism. Follow up cardiology recommendations. Monitor renal function. Monitor electrolytes. Supplement as necessary. Monitor ins and outs. DVT prophylaxis- Lovenox GI prophylaxis- Pepcid Prognosis: Poor given patient's multiple co-morbidities. Condition: Critical Rest of plan per hospitalist and other consultants. A total of 35 minutes of critical care time was spent reviewing the patient record, examining the patient, making a diagnostic and therapeutic plan, discussing this plan with the medical personnel, following up on diagnostic studies and following the patient for clinical stability excluding any and all procedures. At least 50% of this time was spent in direct, [id number] contact. Thank you, Alessandro Bentley NP, for allowing me to participate in this patient's care. Further recommendations will depend on the patient's clinical course. Please do not hesitate to contact me if you have any questions or concerns. This medical document was created using an electronic medical record system with [employer] dictation system. Although these documentations are being carefully reviewed, there may still be some phonetic and typographical changes. The errors are purely typographical, due to imperfection on the software program, and do not reflect any compromise in the patient's medical care. Dietary Evaluation Review Comments: Continue current plan of care Expected Outcomes/Goals: F/U in 3-5 days Plan discussed with: Other (SANDRA Rivera) Critical Care Time(min): 35 FANNIE SULLIVAN MD Feb 04, 2024 21:18
[2024-02-04] MEDS: methylPREDNISolone SOD SUCC 125 MG/2 ML VL IV SCH (21:23)
[2024-02-05] VITALS (12 sets, daily range): BP systolic 102–109; BP diastolic 55–64; PULSE 60–81; RESP 16–20; TEMP 97.4–98.1; O2SAT 94–99
[2024-02-05] MEDS: LACTULOSE 20Gm/30ML SOLN PO ONE (12:30)
[2024-02-05] MEDS ORDERED: ALBU108A5 IN (13:06)
[2024-02-05] MEDS ORDERED: PRED10TA PO (13:08)
[2024-02-05] MEDS ORDERED: BECL40AE11 IN (13:08)
--- NOTE | 2024-02-05 13:20 | DVHDS2 ---
Discharge Summary Date of Admission Jan 30, 2024 at 03:03 Date of Discharge: Feb 05, 2024 Admitting Diagnosis Acute respiratory failure Labs/Diagnostic Data: Laboratory Results Test 02/04/24 04:43 02/02/24 05:07 02/01/24 04:52 01/31/24 04:48 White Blood Count 10.8 10^3/uL (4.4-10.8) Red Blood Count 4.29 10^6/uL (4.0-5.20) Hemoglobin 12.8 g/dL (12.2-16.2) Hematocrit 37.6 % (36.0-46.0) Mean Corpuscular Volume 87.7 fL (80.0-100.0) Mean Corpuscular Hemoglobin 29.8 pg (28.0-32.0) Mean Corpuscular Hemoglobin Concent 34.0 g/dL (32.0-36.0) Red Cell Distribution Width 13.6 % (11.8-14.3) Platelet Count 269 10^3/uL (140-450) Mean Platelet Volume 8.5 fL (6.9-10.8) Neutrophils (%) (Auto) 78.3 % (37.0-80.0) Lymphocytes (%) (Auto) 14.3 % (10.0-50.0) Monocytes (%) (Auto) 7.1 % (0.0-12.0) Eosinophils (%) (Auto) 0.1 % (0.0-7.0) Basophils (%) (Auto) 0.2 % (0.0-2.0) Neutrophils # (Auto) 8.4 10 ^3/uL (1.6-8.6) Lymphocytes # (Auto) 1.5 10 ^3/uL (0.4-5.4) Monocytes # (Auto) 0.8 10 ^3/uL (0-1.3) Eosinophils # (Auto) 0 10 ^3/uL (0-0.8) Basophils # (Auto) 0 10 ^3/uL (0-0.2) Nucleated Red Blood Cells 0.0 % Sodium Level 138 mmol/L (136-145) Potassium Level 4.1 mmol/L (3.5-5.1) Chloride Level 104 mmol/L (98-107) Carbon Dioxide Level 27 mmol/L (20-31) Anion Gap 7 (5-15) Blood Urea Nitrogen 11 mg/dL (9-23) Creatinine 0.55 mg/dL (0.550-1.02) Glomerular Filtration Rate Calc 127 mL/min (>90) BUN/Creatinine Ratio 20.0 (10.0-20.0) Serum Glucose 151 mg/dL (74-106) Calcium Level 8.9 mg/dL (8.7-10.4) Platelet Estimate Adequate Clumped Platelets Few Large Platelets Few Magnesium Level 2.4 mg/dL (1.6-2.6) Total Bilirubin 0.6 mg/dL (0.2-1.0) Aspartate Amino Transferase (AST) 15 U/L (13-40) Alanine Aminotransferase (ALT) 16 U/L (7-40) Alkaline Phosphatase 65 U/L (46-116) Total Protein 7.7 g/dL (5.7-8.2) Albumin 4.8 g/dL (3.2-4.8) Test 01/30/24 23:24 01/30/24 21:56 01/30/24 12:45 01/30/24 06:35 B-Type Natriuretic Peptide 45.18 pg/mL (0-100) Blood Gas Specimen Type Arterial Blood Gas Sample Site Left radial Blood Gas Patient Temperature 37.0 Arterial Blood Date Drawn [id number] Arterial Blood pH 7.421 (7.350-7.450) Arterial Blood Partial Pressure CO2 31.3 mmHg (32.0-45.0) Arterial Blood Partial Pressure O2 65.1 mmHg (83.0-108.0) Arterial Blood HCO3 19.9 mmol/L (21.0-28.0) Arterial Blood Oxygen Saturation 92.9 % (94.0-98.0) Arterial Blood Base Excess -3.4 mmol/L (-2.0-3.0) Arterial Blood Oxyhemoglobin 91.9 % (94.0-98.0) Arterial Blood Carboxyhemoglobin 0.7 % (0.5-1.5) Arterial Blood Methemoglobin 0.4 % (0.0-1.5) Lucas Test Yes Blood Gas Total Hemoglobin 14.40 g/dL (12.0-16.0) Blood Gas Liter Flow 30.00 Blood Gas Modality High flow FiO2 % 70.0 Influenza Type A Antigen Negative (Negative) Influenza Type B Antigen Negative (Negative) Differential Total Cells Counted 100.0 (100) Neutrophils % (Manual) 87 (37.0-80.0) Band Neutrophils % (Manual) 5 Lymphocytes % (Manual) 5 (10.0-50.0) Monocytes % (Manual) 3 (0-12) Eosinophils % (Manual) 0 (0-7) Basophils % (Manual) 0 (0.0-2.0) Metamyelocytes % (manual) 0 Myelocytes % (Manual) 0 Promyelocytes % (Manual) 0 Blast Cells % (Manual) 0 Reactive Lymphocytes 0 Red Blood Cell Morphology Normal Erythrocyte Sedimentation Rate 12 mm/hr (0-20) C-Reactive Protein High Sensitivity 2.99 mg/dL (<1.0) Test 01/30/24 06:30 01/30/24 04:20 01/30/24 00:45 SARS-CoV-2 Antigen (Rapid) Negative (NEGATIVE) Urine Color Light-yellow (Yellow) Urine Clarity Clear (Clear) Urine pH 6.5 (5.0-9.0) Urine Specific [place] 1.032 (1.001-1.035) Urine Protein Negative (Negative) Urine Ketones 1+ (Negative) Urine Blood Negative /uL (Negative) Urine Nitrite Negative (Negative) Urine Bilirubin Negative (Negative) Urine Urobilinogen Normal mg/dL (Negative) Urine Leukocyte Esterase Negative /uL (Negative) Urine RBC None seen /hpf (0 - 4) Urine WBC None seen /hpf (0 - 5) Urine Squamous Epithelial Cells Few /hpf (<5) Urine Bacteria None seen /hpf (None Seen) Urine Glucose Normal mg/dL (Normal) D-Dimer, Quantitative 1.11 mg/L FEU (0.0-0.49) Troponin I High Sensitivity 11 ng/L (</=34) Beta HCG, Quantitative 0.4 mIU/mL (1.5-4.2) Other Laboratory Tests 02/04/24 04:43 Brief Hx & Hospital Course: History of Present Illness THE PATIENT IS A 29-YEAR-OLD FEMALE WITH PAST MEDICAL HISTORY OF ASTHMA WHO PRESENTED TO [facility] ED WITH COMPLAINT OF SHORTNESS OF BREATHS. PATIENT WAS SEEN WITH THE FACILITY EARLIER THIS MORNING AND SENT HOME WITH ANTIBIOTICS AFTER BREATHING TREATMENTS. PATIENT STATES THAT SHORTLY AFTER ARRIVING BACK HOME, SHE CONTINUED TO HAVE SIGNIFICANT SHORTNESS OF BREATHS CONCERNS. PATIENT WAS SEEN AND EVALUATED IN THE ED SATURATING IN THE 80S, TACHYCARDIA, TACHYPNEIC, AND PRESENTING IN MILD RESPIRATORY DISTRESS. LABORATORY DATA SHOWS WBC 25.4, PLATELETS 327, SODIUM 137, POTASSIUM 4.3, BUN 6, CREATININE 0.66, GLUCOSE 121, PROTEIN 8.5, ALBUMIN 5.5, TROPONIN 11, D-DIMER 1.11. CHEST X- RAY SHOW NO ACUTE CARDIOPULMONARY ABNORMALITY; CT ANGIOGRAPHY RESULT PENDING. PATIENT WAS GIVEN BREATHING TREATMENT, STARTED ON IV ANTIBIOTIC REGIMEN AZITHROMYCIN, PLEASE SEE MEDICATION ORDERS SECTION IN THE COMPUTER. ON MY ASSESSMENT, PATIENT DENIED CHEST PAIN, NO HEADACHE, NO DIZZINESS, NO DIAPHORESIS, CURRENTLY ON OXYGEN, NO NAUSEA, NO VOMITING, NO FEVER, NO CHILLS. PATIENT WAS ADMITTED FOR FURTHER EVALUATION AND MEDICAL MANAGEMENT. Course of hospitalization: Patient had severe asthma exacerbation requiring transfer to step-down ICU. Patient was placed on high-flow nasal cannula, titrated from 80% to nasal cannula. Patient was continued on empiric antibiotic therapy. She was negative for influenza a/B, COVID. Pulmonary consultation was also obtained for management of the patient. She was started on high dose steroids, 125 mg of Solu-Medrol q.8 hours, which has been titrated while in the hospital with improvement with her status. Today, she was assessed to be 97% on room air. Mild wheezing noted to her posterior bases. Patient also states that clinically she feels better. Further discussion with the patient reveals that she is a road traffic controller to stray dogs, with education given to the patient that the animal dander probably exacerbated her asthma. She states that her has been has removed all the animals from her house and has deep cleaned her carpets. She is agreeable to be discharged home. She will continue with a four-week dose of prednisone, tapered every seven days. She will also be discharged home on QVAR one puff twice a day, as well as a refill with her albuterol rescue inhaler. She was instructed follow up with the discharge Clinic in one week, her PCP in 1-2 weeks, and pulmonology in the next 2-3 weeks. She is agreeable with discharge plan. All questions answered. Physical examination General: Alert and Oriented x3. No acute distress. Well-nourished. Eyes: EOMI. Anicteric. HENT: Moist mucous membranes. Lungs: Clear to auscultation bilaterally. No accessory muscle use. Cardiovascular: Regular rate and rhythm. No murmur. No JVD. Abdomen: Soft, non-tender and non-distended. No palpable masses. Extremities: No edema. Non-tender. Skin: No rashes or lesions. Warm. Neurologic: No focal neurological deficits. CN II-XII grossly intact, but not individually tested. Psychiatric: Cooperative. Appropriate mood and affect. Total time spent with patient discussing and formulating plan of care: 35 minutes. This medical document was created using an electronic medical record system with [employer] dictation system. Although this document has been carefully reviewed, there may still be some phonetic and typographical errors. These areas are purely typographical due to imperfections of the software programs, and do not reflect any compromise in the patient's medical care. Consults/Reason for consult Pulmonology: Acute respiratory failure Condition at Discharge: Fair Final Diagnosis/Problems List Acute hypoxic respiratory failure secondary to asthma exacerbation Secondary Diagnosis: -acute hypoxic respiratory failure -severe asthma exacerbation -ruled out community-acquired pneumonia -ruled out pulmonary embolism -ruled out DVT -rheumatoid arthritis -leukocytosis, ruled out sepsis Discharge Disposition: Home Discharge Instruct/Medications Diet: Regular Activity: No Restrictions, As Tolerated Follow Up/Referral: Follow up with pulmonology in 2-3 weeks Follow up with PCP in 1-2 weeks Discharge Clinic in one week Medications: Prednisone tapering dose: 40 mg x 1 week, 30 mg times one week, 20 mg x1 week, 10 mg x 1 week QVAR one puff b.i.d. Ventolin one puff q.4 hours as needed for dyspnea. 36 Discharge Statement: "Patient was advised to return to the ER or call 911 if any headaches, dizziness, shortness of breath, chest pain, abdominal pain, bleeding, fevers, or worsening of medical condition. Patient was counseled about treatment plan, medications, possible side effects, patientverbalized understanding. All questions were answered to the best of my ability. This discharge took greater then 30 minutes in planning, reviewing documentation, counseling the patient, and discussing with other team members." ASSESSMENT ASSESSMENT Assessment Acute hypoxic respiratory failure secondary to asthma exacerbation Date of Service: Feb 05, 2024 Billing Provider: ARLYN TORRE NP Common Visit Codes: 95596-CYE/OBS DISCH DAY >30min ARLYN TORRE NP Feb 05, 2024 13:20
--- NOTE | 2024-02-05 21:12 | DVHPN2 ---
Progress Note - Dictate Date Seen: Feb 05, 2024 Medical Necessity Reason Pt with a Central, PICC or Fol: No Subjective Patient seen and examined at bedside. Remains on supplemental oxygen Overnight events reviewed. vital signs Vital Sign Date Time Temp Pulse Resp B/P (MAP) Pulse Ox O2 Delivery O2 Flow Rate FiO2 02/05/24 14:20 75 16 02/05/24 14:17 94 Room Air* 0 21 02/05/24 13:00 97.4 109/63 (78) 97.4 Total Intake and Output 02/04/24 02/04/24 02/05/24 15:00 23:00 07:00 Intake Total 600 ml 200 ml 355 ml Balance 600 ml 200 ml 355 ml objective Gen.: Patient lying in bed in no apparent distress. On supplemental oxygen. Head: Normocephalic, atraumatic. Eyes: EOMI/PERRLA. Ears: Normal hearing. Normal anatomy. Neck/trachea: Trachea midline, supple. Nose: Normal external anatomy. Mouth: Moist mucous membranes. Chest: Decreased air entry bilaterally. No wheezing or rhonchi. Cardiovascular: Positive S1, positive S2. Regular rate and rhythm. Abdomen: Positive bowel sounds in all 4 quadrants. Soft, non-tender, non- distended. : Deferred. Rectal: Deferred. Skin: Warm, dry. Intact. Extremities: 2+ radial pulses bilaterally. No lower extremity edema. Neuro: Awake, alert, oriented x3. No gross motor or sensory deficits. Cranial nerves II through XII intact. Gait not assessed. laboratory and microbiology Laboratory Tests 02/04/24 04:43 Test 02/04/24 04:43 Range/Units Serum Glucose 151 H 74-106 mg/dL Assessment/Plan Impression: Acute hypoxic respiratory failure Asthma exacerbation Rheumatoid arthritis Leukocytosis Elevated D-dimer GGO on imaging Events: Remains on supplemental oxygen, 2 LPM NC Improved O2 requirements Taper O2 as tolerated Continue bronchodilators. Continue IV steroids - recommend tapering course of prednisone on discharge. Continue antibiotics Antitussive for cough. Incentive spirometry Patient is stable for discharge from the pulmonary standpoint. Follow up in 2-3 weeks in Pulmonary Clinic. Labs and imaging reviewed. Rest of plan as noted below. Plan: Supplemental oxygen - 2 LPM NC Transitioned from HFO2 to low flow Titrate to keep O2 sats above 92%. Pulse dose steroids Bronchodilators/Pulmicort BID. Continue antibiotics WBC trending down. Elevated D-dimer. Ruled out DVT in bilateral lower extremities Ruled out pulmonary embolism. Follow up cardiology recommendations. Monitor renal function. Monitor electrolytes. Supplement as necessary. Monitor ins and outs. DVT prophylaxis- Lovenox GI prophylaxis- Pepcid Prognosis: Poor given patient's multiple co-morbidities. Rest of plan per hospitalist and other consultants. Thank you, Alessandro Bentley NP, for allowing me to participate in this patient's care. Further recommendations will depend on the patient's clinical course. Please do not hesitate to contact me if you have any questions or concerns. This medical document was created using an electronic medical record system with [employer] dictation system. Although these documentations are being carefully reviewed, there may still be some phonetic and typographical changes. The errors are purely typographical, due to imperfection on the software program, and do not reflect any compromise in the patient's medical care. Dietary Evaluation Review Comments: Continue current plan of care Expected Outcomes/Goals: F/U in 3-5 days Plan discussed with: Patient, Other (SANDRA Ospina/SHERRY Gonzalez) FANNIE SULLIVAN MD Feb 05, 2024 21:12
== END 2024-02-05 15:00 | disposition home or self-care (01) | DRG 133 ==
LOC: ER 00:19 → TELE 03:03 → TELE-E-ADS 15:47 → DOU IN ICU 20:30 → CENTRAL 02-04 16:56
PROVIDERS: ADMIT Nurse Practitioner Family; ATTEND Nurse Practitioner Acute Care
PROC: 5A0955A Assistance with Respiratory Ventilation, Greater than 96 Consecutive Hours, High Flow/Velocity Cannula (ICD-10-PCS; principal; 2024-01-30)
DX: J96.01 Acute respiratory failure with hypoxia (principal); J45.901 Unspecified asthma with (acute) exacerbation; M06.9 Rheumatoid arthritis, unspecified; R79.89 Other specified abnormal findings of blood chemistry; Z20.822 Contact with and (suspected) exposure to COVID-19; Z82.49 Family history of ischemic heart disease and other diseases of the circulatory system
CPT/HCPCS: 36415; 36600; 71045; 71275; 80048; 80053; 81001; 82805; 83735; 83880; 84484; 84702; 85007; 85025; 85027; 85379; 85652; 86141; 87040; 87070; 87081; 87205; 87426; 87804; 93005; 93970; 94640; 94644; 99291; G0378; J3490